=== PATIENT | female | born 1945 | race Caucasian/White ===

== ENCOUNTER 2018-01-24 17:02 | Inpatient (IN) | payer OTHER ==
[2018-01-24] MEDS ORDERED: INSULIN -REGULAR HUMAN 50 UNIT/0.5 ML ML ONE (17:24)
[2018-01-24] MEDS ORDERED: NA CHLORIDE 0.9% 1,000 ML ONE ×2 (17:24→21:14)
[2018-01-24 17:33] LABS: Absolute Lymphocytes (CBC) 0.4 K/uL (0.7-4.9); Absolute Monocytes 0.3 K/uL (0.1-1.3); Absolute Neutrophil 7.4 K/uL (1.8-8.0); Basophils % 0.2 % (0-1.3); Hematocrit 35.2 % (36.0-45.0); Lymphocytes % 4.5 % (15.3-44.8); MCH 28.1 pg (27.0-35.0); MCV 87.9 fL (80-100); MPV 7.9 fL (7.6-11.3); Monocytes % 3.4 % (3.3-12.3)
[2018-01-24 17:55] LABS: Potassium 6.1 mEq/L (3.6-5.0)
--- NOTE | 2018-01-24 18:20 | EDPHYS ---
Physician Documentation [facility] Name: Terra Lawson Age: 72 yrs Sex: Female : 1945 Arrival Date: 01/24/2018 Time: 17:05 Bed 14 Private MD: ED Physician Luan Mobley HPI: 01/24 17:20 This 72 yrs old Female presents to ER via EMS with complaints of High Blood kb Sugar. 17:20 The patient or guardian reports hyperglycemia. Onset: The symptoms/episode kb began/occurred today. Associated signs and symptoms: Pertinent positives: None. Current symptoms: In the emergency department the patient's symptoms are unchanged from the initial presentation. The patient has not experienced similar symptoms in the past. The patient has not recently seen a physician. Pt states she checked her blood sugar like she normally does and it read high so she came to get seen. States the pharmacy wouldn't give her the insulin that she normally takes until she is seen by a doctor so she has an appt tomorrow with Dr Zhang. . Historical: - Allergies: 17:06 No Known Allergies; aa5 - PMHx: 17:06 Diabetes - IDDM; Breast Cancer; aa5 17:14 Hypertension; aa5 - PSHx: 17:06 Knee surgery; Hysterectomy; aa5 - Immunization history:: Pneumococcal vaccine is up to date, Flu vaccine is up to date. - Social history:: Smoking status: Patient/guardian denies using tobacco. ROS: 17:19 Constitutional: Negative for fever, chills, and weight loss, Eyes: Negative for injury, kb pain, redness, and discharge, ENT: Negative for injury, pain, and discharge, Neck: Negative for injury, pain, and swelling, Cardiovascular: Negative for chest pain, palpitations, and edema, Respiratory: Negative for shortness of breath, cough, wheezing, and pleuritic chest pain, Abdomen/GI: Negative for abdominal pain, nausea, vomiting, diarrhea, and constipation, Back: Negative for injury and pain, : Negative for injury, bleeding, discharge, and swelling, MS/Extremity: Negative for injury and deformity, Skin: Negative for injury, rash, and discoloration, Neuro: Negative for headache, weakness, numbness, tingling, and seizure. Exam: 17:19 Constitutional: This is a well developed, well nourished patient who is awake, alert, kb and in no acute distress. Head/Face: Normocephalic, atraumatic. ENT: Nares patent. No nasal discharge, no septal abnormalities noted. Tympanic membranes are normal and external auditory canals are clear. Oropharynx with no redness, swelling, or masses, exudates, or evidence of obstruction, uvula midline. Mucous membranes moist. Neck: Trachea midline, no thyromegaly or masses palpated, and no cervical lymphadenopathy. Supple, full range of motion without nuchal rigidity, or vertebral point tenderness. No Meningismus. Chest/axilla: Normal chest wall appearance and motion. Nontender with no deformity. No lesions are appreciated. Cardiovascular: Regular rate and rhythm with a normal S1 and S2. No gallops, murmurs, or rubs. Normal PMI, no JVD. No pulse deficits. Respiratory: Lungs have equal breath sounds bilaterally, clear to auscultation and percussion. No rales, rhonchi or wheezes noted. No increased work of breathing, no retractions or nasal flaring. Abdomen/GI: Soft, non-tender, with normal bowel sounds. No distension or tympany. No guarding or rebound. No evidence of tenderness throughout. Back: No spinal tenderness. No costovertebral tenderness. Full range of motion. Skin: Warm, dry with normal turgor. Normal color with no rashes, no lesions, and no evidence of cellulitis. MS/ Extremity: Pulses equal, no cyanosis. Neurovascular intact. Full, normal range of motion. Neuro: Awake and alert, GCS 15, oriented to person, place, time, and situation. Cranial nerves II-XII grossly intact. Motor strength 5/5 in all extremities. Sensory grossly intact. Cerebellar exam normal. Normal gait. Vital Signs: 17:07 BP 136 / 68; Pulse 96; Resp 18 S; Temp 98.2(O); Pulse Ox 98% on R/A; Weight 63.5 kg aa5 (R); Height 5 ft. 5 in. (165.10 cm) (R); Pain 0/10; 18:00 BP 132 / 64; Pulse 88; Resp 18; Pulse Ox 96% on 3 lpm NC; hb 19:55 BP 115 / 54; Pulse 80; Resp 18; Pulse Ox 100% ; ea 20:55 BP 120 / 78; Pulse 82; Resp 18; Pulse Ox 99% ; ea 21:55 BP 120 / 67; Pulse 78; Resp 18; Temp 98.0; Pulse Ox 99% on R/A; ea 17:07 Body Mass Index 23.30 (63.50 kg, 165.10 cm) aa5 MDM: 17:06 Patient medically screened. kb 17:19 Data reviewed: vital signs, nurses notes. Data interpreted: Pulse oximetry: on room air kb is 98 %. Interpretation: normal. 18:10 Counseling: I had a detailed discussion with the patient and/or guardian regarding: the kb historical points, exam findings, and any diagnostic results supporting the discharge/admit diagnosis, lab results, radiology results, the need for further work-up and treatment in the hospital. 18:18 Physician consultation: Delvin Berkowitz DO was contacted at 18:19, regarding admission, kb to the ICU, patient's condition, and will see patient. 01/24 17:11 Order name: CBC with Diff; Complete Time: 18:56 kb 01/24 17:11 Order name: Basic Metabolic Panel; Complete Time: 17:57 kb 01/24 17:58 Order name: ABG; Complete Time: 18:34 kb 01/24 18:45 Order name: Urine Culture kb 01/24 18:45 Order name: Urine Microscopic Only kb 01/24 18:45 Order name: Blood Culture Adult (2) 01/24 18:54 Order name: Manual Differential; Complete Time: 18:56 EDMS 01/24 20:13 Order name: Acetone Level; Complete Time: 20:17 EDMS 01/24 20:16 Order name: Basic Metabolic Panel; Complete Time: 20:17 EDMS 01/24 21:28 Order name: Acetone Level; Complete Time: 21:29 EDMS 01/24 17:11 Order name: IV Start; Complete Time: 17:26 kb 01/24 18:19 Order name: EKG; Complete Time: 18:20 kb 01/24 18:19 Order name: EKG - Nurse/Tech; Complete Time: 18:58 kb Administered Medications: 17:26 Drug: NS 0.9% 1000 ml Route: IV; Rate: 1000 ml; Site: right forearm; aa5 18:30 Follow up: Response: No adverse reaction; IV Status: Completed infusion hb 17:27 Drug: Insulin Regular Human 10 units {Co-Signature: scarlett (Yesenia Sales RN).} Route: aa5 IVP; Site: right forearm; 19:00 Follow up: Response: No adverse reaction ea 18:13 CANCELLED (Duplicate Order): Albuterol 2.5 mg Inhalation once kb 18:20 Drug: Albuterol 5 mg Route: Inhalation; hb 19:19 Follow up: Response: No change in condition hb 18:22 Drug: Lasix 40 mg Route: IVP; Site: right antecubital; hb 19:19 Follow up: Response: No change in condition hb 18:30 Drug: NS 0.9% 1000 ml Route: IV; Rate: 125 ml/hr; Site: right antecubital; hb 20:03 Follow up: IV Status: Infusion continued upon admission ea 18:33 Drug: Kayexalate 45 grams Route: PO; hb 19:19 Follow up: Response: No adverse reaction hb 18:45 Drug: Insulin Drip - (Insulin Regular Human 100 units, NS 0.9% 100 ml) {Co-Signature: hb aa5 (Cortney Hayes RN).} Route: IV; Rate: calculated rate; Site: right antecubital; 22:03 Follow up: IV Status: Infusion continued upon admission ea 18:49 Drug: Calcium Gluconate 1 grams Route: IVPB; Infused Over: 60 mins; Site: right hb antecubital; 20:50 Follow up: Response: No adverse reaction; IV Status: Completed infusion ea Point of Care Testin:08 >500mg/dL aa5 Ranges: Critical Glucose Levels:Adult <50 mg/dl or >400 mg/dl <40 mg/dl or >180 mg/dl Disposition: 22:39 Co-signature as Attending Physician, Luan Mobley MD I agree with the assessment and kdr plan of care. Disposition: 01/24/18 18:19 Hospitalization ordered by Brandy Sol for Inpatient Admission. Preliminary diagnosis are Diabetes mellitus due to underlying condition with ketoacidosis, Hyperkalemia. - Bed requested for Intensive Care Unit. - Status is Inpatient Admission. ea - Condition is Stable. - Problem is new. - Symptoms are unchanged. UTI on Admission? No Signatures: Dispatcher [employer] Sharron Coats, MARY VIGIL-Anamika Guillen RN RN mw Luan Mobley MD MD [facility] Cortney Hayes RN RN aa5 Yesenia Sales, RN VONDA Samina Gallardo RN RN Yesenia Sales RN Cortney Hayes RN aa5 Corrections: (The following items were deleted from the chart) 18:13 18:03 Albuterol 2.5 mg Inhalation once ordered. kb kb 19:48 18:19 Hospitalization Ordered by Brandy Sol MD for Inpatient Admission. Preliminary mw diagnosis is Diabetes mellitus due to underlying condition with ketoacidosis; Hyperkalemia. Bed requested for Intensive Care Unit. Status is Inpatient Admission. Condition is Stable. Problem is new. Symptoms are unchanged. UTI on Admission? No. kb 22:54 19:48 01/24/2018 18:19 Hospitalization Ordered by Brandy Sol MD for Inpatient ea Admission. Preliminary diagnosis is Diabetes mellitus due to underlying condition with ketoacidosis; Hyperkalemia. Bed requested for Intensive Care Unit. Status is Inpatient Admission. Condition is Stable. Problem is new. Symptoms are unchanged. UTI on Admission? No. mw
--- NOTE | 2018-01-24 18:20 | ER ---
Nurse's Notes [facility] Name: Terra Lawson Age: 72 yrs Sex: Female : 1945 Arrival Date: 01/24/2018 Time: 17:05 Bed 14 Private MD: Diagnosis: Diabetes mellitus due to underlying condition with ketoacidosis;Hyperkalemia Presentation: 01/24 17:05 Presenting complaint: Patient states: "my blood sugar was reading high today and the aa5 pharmacy would not give me my insulin because they said I needed to see a doctor first". pt denies any symptoms. Denies N/V, denies pain. 17:05 Transition of care: patient was not received from another setting of care. Onset of aa5 symptoms was January 24, 2018. Initial Sepsis Screen: Does the patient meet any 2 criteria? No. Patient's initial sepsis screen is negative. Does the patient have a suspected source of infection? No. Patient's initial sepsis screen is negative. Care prior to arrival: FSBG >500. 17:05 Method Of Arrival: EMS: [facility] aa5 17:05 Acuity: APRIL 3 aa5 17:05 Note Pt reports last chemotherapy was 2-3 weeks ago. aa5 18:05 Acuity: APRIL 2 hb Historical: - Allergies: 17:06 No Known Allergies; aa5 - PMHx: 17:06 Diabetes - IDDM; Breast Cancer; aa5 17:14 Hypertension; aa5 - PSHx: 17:06 Knee surgery; Hysterectomy; aa5 - Immunization history:: Pneumococcal vaccine is up to date, Flu vaccine is up to date. - Social history:: Smoking status: Patient/guardian denies using tobacco. Screenin:27 Abuse screen: Denies threats or abuse. Denies injuries from another. Nutritional aa5 screening: No deficits noted. Tuberculosis screening: No symptoms or risk factors identified. Fall Risk Total Monterroso Fall Scale indicates Low Risk Score (25-44 pts). Fall prevention measures have been instituted. Side Rails Up X 2 Family Present and informed to notify staff if they need to leave bedside As available Patient and Family Educated on Fall Prevention Program and strategies. Assessment: 17:30 General: Appears in no apparent distress. ill, Behavior is calm, cooperative. Pain: hb Denies pain. Neuro: Level of Consciousness is awake, alert, obeys commands, Oriented to person, place, time, situation. Cardiovascular: Capillary refill < 3 seconds Patient's skin is warm and dry. Respiratory: Airway is patent Trachea midline Respiratory effort is even, unlabored, Respiratory pattern is regular, symmetrical, Breath sounds are clear bilaterally. GI: No signs and/or symptoms were reported involving the gastrointestinal system. : No signs and/or symptoms were reported regarding the genitourinary system. EENT: No signs and/or symptoms were reported regarding the EENT system. Derm: No signs and/or symptoms reported regarding the dermatologic system. Skin is intact, is healthy with good turgor, Skin is pink, warm \\T\\ dry. Musculoskeletal: No signs and/or symptoms reported regarding the musculoskeletal system. 18:30 Reassessment: Patient appears in no apparent distress at this time. No changes from hb previously documented assessment. Patient and/or family updated on plan of care and expected duration. Pain level reassessed. Patient is alert, oriented x 3, equal unlabored respirations, skin warm/dry/pink. 19:30 General: Appears in no apparent distress. Behavior is calm, cooperative. Pain: Denies ea pain. Neuro: Level of Consciousness is awake, alert, obeys commands, Oriented to person, place, time, situation. Cardiovascular: Patient's skin is warm and dry. Respiratory: Airway is patent Respiratory effort is even, unlabored, Respiratory pattern is regular, symmetrical, Breath sounds are clear bilaterally. GI: No signs and/or symptoms were reported involving the gastrointestinal system. : No signs and/or symptoms were reported regarding the genitourinary system. EENT: No signs and/or symptoms were reported regarding the EENT system. Derm: Skin is intact, Skin is pink, warm \\T\\ dry. Musculoskeletal: No signs and/or symptoms reported regarding the musculoskeletal system. 20:30 Reassessment: Patient and/or family updated on plan of care and expected duration. Pain ea level reassessed. Patient is alert, oriented x 3, equal unlabored respirations, skin warm/dry/pink. 21:55 Reassessment: Patient and/or family updated on plan of care and expected duration. Pain ea level reassessed. Patient is alert, oriented x 3, equal unlabored respirations, skin warm/dry/pink. Vital Signs: 17:07 BP 136 / 68; Pulse 96; Resp 18 S; Temp 98.2(O); Pulse Ox 98% on R/A; Weight 63.5 kg aa5 (R); Height 5 ft. 5 in. (165.10 cm) (R); Pain 0/10; 18:00 BP 132 / 64; Pulse 88; Resp 18; Pulse Ox 96% on 3 lpm NC; hb 19:55 BP 115 / 54; Pulse 80; Resp 18; Pulse Ox 100% ; ea 20:55 BP 120 / 78; Pulse 82; Resp 18; Pulse Ox 99% ; ea 21:55 BP 120 / 67; Pulse 78; Resp 18; Temp 98.0; Pulse Ox 99% on R/A; ea 17:07 Body Mass Index 23.30 (63.50 kg, 165.10 cm) aa5 ED Course: 17:05 Patient arrived in ED. aa5 17:05 Arm band placed on Patient placed in an exam room, on a stretcher. aa5 17:06 [facility] kb 17:06 Luan Mobley MD is Attending Physician. kb 17:12 Triage completed. aa5 17:27 Inserted saline lock: 24 gauge in right forearm, using aseptic technique. Blood aa5 collected. 17:30 Patient has correct armband on for positive identification. Placed in gown. Bed in low hb position. Call light in reach. Side rails up X 1. 18:19 Brandy Sol MD is Hospitalizing Provider. kb 18:19 Yesenia Sales, RN is Primary Nurse. hb 18:35 Inserted saline lock: 22 gauge in right antecubital area, using aseptic technique. jb1 18:58 Blood Culture Adult (2) Sent. hb 20:02 No provider procedures requiring assistance completed. Patient admitted, IV remains in ea place. Administered Medications: 17:26 Drug: NS 0.9% 1000 ml Route: IV; Rate: 1000 ml; Site: right forearm; aa5 18:30 Follow up: Response: No adverse reaction; IV Status: Completed infusion hb 17:27 Drug: Insulin Regular Human 10 units {Co-Signature: scarlett (Yesenia Sales RN).} Route: aa5 IVP; Site: right forearm; 19:00 Follow up: Response: No adverse reaction ea 18:13 CANCELLED (Duplicate Order): Albuterol 2.5 mg Inhalation once kb 18:20 Drug: Albuterol 5 mg Route: Inhalation; hb 19:19 Follow up: Response: No change in condition hb 18:22 Drug: Lasix 40 mg Route: IVP; Site: right antecubital; hb 19:19 Follow up: Response: No change in condition hb 18:30 Drug: NS 0.9% 1000 ml Route: IV; Rate: 125 ml/hr; Site: right antecubital; hb 20:03 Follow up: IV Status: Infusion continued upon admission ea 18:33 Drug: Kayexalate 45 grams Route: PO; hb 19:19 Follow up: Response: No adverse reaction hb 18:45 Drug: Insulin Drip - (Insulin Regular Human 100 units, NS 0.9% 100 ml) {Co-Signature: scarlett nance5 (Cortney Hayes RN).} Route: IV; Rate: calculated rate; Site: right antecubital; 22:03 Follow up: IV Status: Infusion continued upon admission ea 18:49 Drug: Calcium Gluconate 1 grams Route: IVPB; Infused Over: 60 mins; Site: right hb antecubital; 20:50 Follow up: Response: No adverse reaction; IV Status: Completed infusion ea Point of Care Testin:08 >500mg/dL aa5 Ranges: Outcome: 18:19 Decision to Hospitalize by Provider. kb 22:05 Instructed on the need for admit. ea 22:54 Admitted to ICU accompanied by nurse, via stretcher, room 7, on monitor, with chart, ea Report called to Receiving nurse 22:54 Condition: stable 22:54 Patient left the ED. ea Signatures: Jeevan Kauffman jb1 Sharron Barry, MARY VIGIL-Cortney Mejia RN RN aa5 Yesenia Sales RN RN Samina Gallardo RN RN ea Heather Baxter RN hb Audri Calderon RN aa5
[2018-01-24] MEDS ORDERED: SOD POLYSTYREN SUL 15 GM/60 ML UCUP ONE (18:24)
[2018-01-24] MEDS ORDERED: FUROSEMIDE 40 MG/4 ML VIAL ONE (18:24)
[2018-01-24] MEDS ORDERED: ALBUTEROL 2.5 MG/3 ML NEB SOL ONE (18:24)
[2018-01-24 18:29] LABS: Arterial Blood Carboxyhemoglob 1.8 % (0-1.5); Blood Gas Oxyhemoglobin 91.5 % (94-97); Blood O2 Saturation 94.2 % (92-98.5)
[2018-01-24] MEDS ORDERED: ONDANSETRON 4 MG/2 ML VIAL IV PRN (18:42)
[2018-01-24] MEDS ORDERED: NA CHLORIDE 0.9% 1,000 ML IV ONE (18:42)
[2018-01-24 18:53] LABS: Blood Morphology Comment NOT SEEN (NOT SEEN); Platelet Estimate ADEQ
[2018-01-24] MEDS ORDERED: ENOXAPARIN 40 MG/0.4 ML SQ SCH (19:00)
[2018-01-24] MEDS ORDERED: D5 0.45 NS 1,000 ML IV SCH (19:00)
[2018-01-24] MEDS ORDERED: INSULIN -REGULAR HUMAN 100 UNIT in NA CHLORIDE 0.9% 100 ML IV SCH (19:00)
[2018-01-24] MEDS ORDERED: NACHLORIDE 0.45% 1,000 ML IV SCH (19:00)
[2018-01-24] MEDS ORDERED: CALCIUM GLUCONATE 1gm/100 ML NS (4.65 mEq/100mL) IV ONE ×2 (19:00)
[2018-01-24 20:14] LABS: BUN Blood Urea Nitrogen 64 mg/dL (6-20); Bicarbonate 23 mEq/L (21-31); Potassium 4.5 mEq/L (3.6-5.0); Sodium Level 129 mEq/L (135-145)
[2018-01-24 20:15] LABS: Glucose Level 550 mg/dL (65-120)
[2018-01-24 23:53] LABS: BUN Blood Urea Nitrogen 63 mg/dL (6-20); Bicarbonate 25 mEq/L (21-31); Potassium 4.1 mEq/L (3.6-5.0); Sodium Level 133 mEq/L (135-145)
[2018-01-25 00:01] LABS: Glucose Level 461 mg/dL (65-120)
[2018-01-25] MEDS ORDERED: NA CHLORIDE 0.9% 1,000 ML IV ONE (01:08)
[2018-01-25 04:43] LABS: Absolute Lymphocytes (CBC) 0.7 K/uL (0.7-4.9); Absolute Monocytes 0.5 K/uL (0.1-1.3); Basophils % 0.1 % (0-1.3); Eosinophils % 0.3 % (0-4.4); Hematocrit 29.6 % (36.0-45.0); Lymphocytes % 8.3 % (15.3-44.8); MCH 27.4 pg (27.0-35.0); MCV 82.5 fL (80-100); MPV 7.8 fL (7.6-11.3); Monocytes % 6.1 % (3.3-12.3); RBC Red Blood Cell Count 3.59 M/uL (3.86-4.86)
[2018-01-25 05:00] VITALS: BMI 20.7
[2018-01-25 05:59] LABS: Magnesium 1.9 mg/dL (1.8-2.5); Phosphorus 3.5 mg/dL (2.5-4.3)
[2018-01-25 06:01] LABS: BUN Blood Urea Nitrogen 55 mg/dL (6-20); Bicarbonate 30 mEq/L (21-31); Glucose Level 167 mg/dL (65-120); Potassium 3.7 mEq/L (3.6-5.0); Sodium Level 136 mEq/L (135-145)
--- NOTE | 2018-01-25 06:05 | EKG ---
Test Date: 2018-01-24 Test Time: 18:55:04 Energy Consultant: LU MEASUREMENT RESULTS: Intervals: Rate: 98 [place]: 120 QRSD: 76 QT: 312 QTc: 398 [place]: P: 47 IL: 120 QRS: 10 T: 45 INTERPRETIVE STATEMENTS: Normal sinus rhythm Nonspecific T wave abnormality Abnormal ECG Compared to ECG 05/15/2015 07:58:49 T-wave abnormality now present Short [place] interval no longer present Electronically Signed On 01-25-18 06:04:17 CDT by Kumar Bowman
[2018-01-25 06:29] LABS: Potassium 3.5 mEq/L (3.6-5.0)
[2018-01-25] MEDS ORDERED: GLUCAGON 1 MG/VIAL IM PRN (06:44)
[2018-01-25] MEDS ORDERED: D50W 25 GM/50 ML SYRINGE IV PRN (06:44)
--- NOTE | 2018-01-25 06:56 | P.HP ---
Certification for Inpatient Patient admitted to: Inpatient With expected LOS: >2 Midnights Patient will require the following post-hospital care: None Practitioner: I am a practitioner with admitting privileges, knowledge of patient current condition, hospital course, and medical plan of care. Services: Services provided to patient in accordance with Admission requirements found in Title 42 Section 412.3 of the Code of Federal Regulations Patient History Date of Service: 01/24/18 Reason for admission: Hyperglycemia and metabolic acidosis History of Present Illness: Patient is a 72-year-old female who recently moved back in the town from [place]. She has history of diabetes but she was out of her insulin. Her blood sugars were reading high and her pharmacist recommended she go into the emergency room. In the emergency room patient was slightly acidotic and her blood sugars were greater than 800. Patient was admitted to the hospital on an insulin drip and given aggressive IV hydration as she has some renal insufficiency. Patient also has a breast mass. Is quite large and has been tender and she was told to have it followed up with when she was in [place]. However since she was coming back to live in the [facility] she did not get follow-up care. She is seen Dr. Edwards in the past and will go ahead and Consult a.m. at this time for further evaluation. Patient is not following up with an oncologist and she will also need outpatient oncology follow-up. Allergies No Known Drug Allergies Allergy (Verified 05/03/15 19:48) Unknown No Known Narinder Allergy (Uncoded 01/24/18 22:59) Unknown Home Medications: Glimepiride [Amaryl] 4 mg PO DAILY 05/16/15 Lisinopril [Prinivil*] 10 mg PO DAILY 05/16/15 Pravastatin Sodium [Pravachol] 40 mg PO BEDTIME 05/16/15 Promethazine Tab [Phenergan*] 12.5 mg PO Q6HP PRN 05/16/15 Sitagliptin Phos/Metformin HCl [Janumet 50-1,000 mg Tablet] 50 - 1,000 tab PO BID 05/16/15 Ascorbic Acid [Vitamin C] 2,000 mg PO DAILY 05/27/15 Calcium Carbonate/Vitamin D3 [Calcium 500 + D Tablet] 2,000 tab PO DAILY Cholecalciferol (Vitamin D3) [Vitamin D] 2,000 mg PO DAILY 05/27/15 Cinnamon Bark [Cinnamon] 2,000 mg PO DAILY 05/27/15 Collagenase [Santyl Ointment*] 1 dose TOP DAILY 05/27/15 Cranberry 900 mg PO DAILY 05/27/15 Ferrous Sulfate [Ferrous Sulfate*] 325 mg PO 30 MIN BEFORE HS 05/27/15 Fish Oil/Borage/Flax/Om3,6,9#1 [Triple [place] Complex 3-6-9] 400 mg PO DAILY 06/02 Hydrocortisone Cream [Hydrocortisone 1% Cream*] 1 dose TOP DAILY 05/27/15 Vitamin E 1,000 iu PO DAILY 05/27/15 Dexamethasone 4 mg PO BID 01/25/18 Omeprazole [Prilosec] 40 mg PO DAILY 01/25/18 - Past Medical/Surgical History Has patient received pneumonia vaccine in the past: Yes Diabetic: Yes -: Diabetes -: HTN -: Hyperlipidemia -: Bilateral Cataract Surgery -: L Knee arthroscopy -: Hysterectomy -: R foot ulcer - wound care - Family History Father History Unknown: Yes Medical History: Hypertension Mother History Unknown: Yes Medical History: Diabetes - Social History Smoking Status: Former smoker Alcohol use: Yes CD- Drugs: No Caffeine use: Yes Review of Systems 10-point ROS is otherwise unremarkable Physical Examination - Vital Signs Temperature: 98.5 F Blood Pressure: 119/57 Pulse: 76 Respirations: 13 Pulse Ox (%): 98 - Physical Exam General: Alert, In no apparent distress, Oriented x3 HEENT: Atraumatic, PERRLA, Mucous membr. moist/pink, EOMI, Sclerae nonicteric Neck: Supple, 2+ carotid pulse no bruit, No LAD, Without JVD or thyroid abnormality Respiratory: Clear to auscultation bilaterally, Normal air movement Cardiovascular: Regular rate/rhythm, Normal S1 S2, No murmurs Gastrointestinal: Normal bowel sounds, Soft and benign, Non-distended, No tenderness Musculoskeletal: No clubbing, No swelling, No tenderness Integumentary: No rashes Neurological: Normal gait, Normal speech, Normal strength at 5/5 x4 extr, Normal tone, Sensation intact, Cranial nerves 3-12 intact, Normal affect Lymphatics: No axilla or inguinal lymphadenopathy - Studies Laboratory Data (last 24 hrs) 01/24/18 17:20: Sodium 121 L, Potassium 6.1 H*, BUN 69 H, Creatinine 1.93 H, Glucose 850 H* 01/24/18 17:20: WBC 8.1, Hgb 11.3 L, Hct 35.2 L, Plt Count 285 Female Exam - Breasts Breasts: Masses/nodules (left breast-5x4cm mass with area of eschar) Assessment & Plan - Problems (Diagnosis) (1) DKA (diabetic ketoacidoses) Current Visit: Yes Status: Acute (2) Breast mass Current Visit: Yes Status: Acute (3) Altered mental status Current Visit: Yes Status: Acute - Plan 1. IVFs and insulin drip 2. Monitor labs 3. BS q hourly 4. Surgery consult for breast mass 5. Outpt oncology follow-up 6. GI/DVT prophylaxis Discharge Plan: Home Plan to discharge in: Greater than 2 days - Advance Directives Does patient have a Living Will: Yes Does patient have a Durable POA for Healthcare: No - Code Status/Comfort Care Code Status Assessed: Yes Code Status: Full Code Critical Care: No Time Spent Managing PTS Care (In Minutes): 50
[2018-01-25] MEDS ORDERED: INSULIN 70/30 100 UNITS/ML SQ SCH (07:30)
[2018-01-25] MEDS: INSULIN DETEMIR 100 UNIT/1 ML INSULIN SQ SCH (07:45)
[2018-01-25 08:00] LABS: Thyroid Stimulating Hormone 0.04 uIU/mL (0.34-5.60)
[2018-01-25] MEDS ORDERED: HYDROCODONE/APAP 7.5/325 MG TAB PO PRN (08:00)
[2018-01-25] MEDS ORDERED: NA CHLORIDE 0.9% 1,000 ML IV SCH (08:00)
[2018-01-25] MEDS ORDERED: TRAMADOL HCL 50 MG TAB PO PRN (08:00)
--- NOTE | 2018-01-25 08:09 | P.PN ---
Subjective Date of Service: 01/25/18 Primary Care Provider: Santosh; ([facility]) Chief Complaint: Hyperglycemia and metabolic acidosis Subjective: Improving (Patient feels well. No nausea, vomiting, abdominal pain or chest pain. Patient with history of diabetes mellitus, hypertension, hyperlipidemia, iron deficiency, chronic renal disease, and breast cancer with mets to the brain/liver) Physical Examination - Vital Signs Temperature: 98.5 F Blood Pressure: 102/53 Pulse: 78 Respirations: 10 Pulse Ox (%): 97 - Physical Exam General: Alert, In no apparent distress, Oriented x3, Cooperative HEENT: Atraumatic, Other (Patient bald) Neck: Supple Respiratory: Clear to auscultation bilaterally, Normal air movement Cardiovascular: Normal pulses, Regular rate/rhythm Gastrointestinal: Normal bowel sounds, Soft and benign, Non-distended, No masses , No rebound, No guarding Musculoskeletal: No erythema, No tenderness, No warmth Integumentary: Other (Breast mass to the left breast. Some ulceration noted breast mass is noted to the axilla area with lymphadenopathy.) Neurological: Normal speech, Normal strength at 5/5 x4 extr, Normal tone, Normal affect - Studies Laboratory Data (last 24 hrs) 01/24/18 17:20: Sodium 121 L, Potassium 6.1 H*, BUN 69 H, Creatinine 1.93 H, Glucose 850 H* 01/24/18 17:20: WBC 8.1, Hgb 11.3 L, Hct 35.2 L, Plt Count 285 Medications List Reviewed: Yes Assessment & Plan - Problems (Diagnosis) (1) Diabetes mellitus Current Visit: Yes Status: Acute Plan: Will check A1c. Patient likely has underlying diabetes mellitus type 2. Patient reports use of insulin in the past but medications also include oral. DKA has resolved. Will discontinue IV insulin. Will transition to Levemir. Will check A1c. Will monitor closely and adjust. Patient will start diet. If doing well will consider transfer to floor later today. Qualifiers: Diabetes mellitus type: type 2 Diabetes mellitus intermediate insulin use: with intermediate use Diabetes mellitus complication status: with ketoacidosis Diabetes mellitus complication detail: without coma Qualified Code(s): E11.10 - Type 2 diabetes mellitus with ketoacidosis without coma; Z79.4 - assisted ( current) use of insulin (2) Chronic renal disease Current Visit: Yes Status: Acute Plan: Patient likely with acute on chronic renal disease. Will consult nephrology. Will order abdominal ultrasound to evaluate. Patient given IV fluids. Qualifiers: Chronic kidney disease stage: stage 3 (moderate) Qualified Code(s): N18.3 - Chronic kidney disease, stage 3 (moderate) (3) Hypertension Current Visit: Yes Status: Chronic Plan: Patient with history of hypertension. Will hold blood pressure medication at this time due to normal blood pressures. Qualifiers: Hypertension type: essential hypertension Qualified Code(s): I10 - Essential (primary) hypertension (4) Hyperlipidemia Current Visit: Yes Status: Chronic Plan: Will continue with her medication. Qualifiers: Hyperlipidemia type: unspecified Qualified Code(s): E78.5 - Hyperlipidemia , unspecified (5) Breast cancer Current Visit: Yes Status: Chronic Plan: Patient with breast cancer to the left breast. She has seen oncology in [place]. Patient had chemotherapy recently. Patient also has metastasis to the brain and liver. She has recently moved to the area. She is in need to establish care with Oncology here to continue her care. The plan of treatment as reported by the patient was to continue with chemotherapy and possible radiation then surgery. Will have social scientist address advanced directives and obtain information from [facility]. Will consult Oncology here to establish Qualifiers: Breast location: upper outer quadrant of breast Estrogen receptor status: unspecified Patient sex: female Laterality: left Qualified Code(s): C50.412 - Malignant neoplasm of upper-outer quadrant of left female breast (6) Brain metastasis Current Visit: Yes Status: Chronic Plan: Continue as above (7) Liver metastasis Current Visit: Yes Status: Chronic Plan: Continue as above. (8) DKA (diabetic ketoacidoses) Current Visit: Yes Status: Acute Plan: This has resolved. Will discontinue IV insulin. Will transition to insulin subcu. Will check A1c. Qualifiers: Diabetes mellitus type: type 2 Diabetes mellitus complication detail: without coma Qualified Code(s): E11.10 - Type 2 diabetes mellitus with ketoacidosis without coma (9) Hyponatremia Current Visit: Yes Status: Acute Plan: Will continue with IV fluids. Rate has been adjusted. (10) Hyperkalemia Current Visit: Yes Status: Acute Plan: This has resolved. Will continue monitor closely. (11) Anemia Current Visit: Yes Status: Chronic Plan: This is likely of chronic disease, check iron and B12 studies. Qualifiers: Anemia type: other cause Other causes of anemia: chronic disease, other Qualified Code(s): D63.8 - Anemia in other chronic diseases classified elsewhere Discharge Plan: Home Plan to discharge in: 24 Hours Time Spent Managing Pts Care (In Minutes): 55
--- NOTE | 2018-01-25 08:35 | RAD REPORT ---
EXAM DESCRIPTION: RAD - Chest Single View - 01/25/2018 8:15 am CLINICAL HISTORY: Shortness of breath COMPARISON: Portable chest April 2015 TECHNIQUE: AP portable chest image was obtained 0803 hours . FINDINGS: Lung volumes are normal. There are innumerable variably sized pulmonary nodules throughout the lung hernandez from a few mm to 15 mm in diameter. Mediastinal and right hilar granulomatous type c alcifications are present, possibly calcifications within treated lymph nodes. There is widening of t he right side mediastinum at the aortic arch. There is no history of malignancy provided. However, th e patient has a right-sided Port-A-Cath in place. It is assumed the patient has a known malignancy. Trachea is midline. Heart and vasculature are normal. No measurable pleural effusion and no pneumotho rax. No gross bony abnormality seen. No acute aortic findings suspected. IMPRESSION: No failure or focal infiltrate seen. Innumerable pulmonary nodules presumed to be metastatic disease. The patient has a Port-A-Cath in daxa ce. Correlation is needed with history. Fullness of the mediastinum and right paratracheal region could be part of malignant process as well.
[2018-01-25] MEDS ORDERED: COLLAGENASE 30 GM OINTMENT TOP SCH (09:00)
[2018-01-25] MEDS ORDERED: HYDROCORTISONE 1 % CREAM 30GM TOP SCH (09:00)
[2018-01-25 09:11] LABS: Potassium 2.7 mEq/L (3.6-5.0)
--- NOTE | 2018-01-25 09:36 | RAD REPORT ---
EXAM DESCRIPTION: US - Abdomen Exam Complete - 01/25/2018 9:02 am CLINICAL HISTORY: History of chronic renal disease, history of metastatic breast carcinoma COMPARISON: CT imaging from April 2015. FINDINGS: Gallbladder size is normal. No gallstones, wall thickening or pericholecystic fluid. Commo n bile duct is normal with no common duct stone identified. Liver and spleen are normal in size. Live r is 15 cm in maximum dimension with the spleen 7 cm in maximum dimension. No liver capsular nodulari ty. Liver parenchyma is somewhat heterogeneous but a discrete liver mass is not identifiable. Provide d clinical history indicates breast carcinoma metastatic to the liver. No recent imaging of the liver available for correlation. Contrast CT or contrast MR imaging of the liver could be performed if the re is need to further document any possible liver disease. Preceding chest film showed numerous metas tatic lesions in the lung parenchyma. The pancreas is grossly normal but partially obscured. No hydronephrosis or suspicious mass in either kidney. Aorta is normal is size. No ascites or bulky lymphadenopathy. IMPRESSION: No gallbladder or biliary tree abnormality. The liver is heterogeneous but does not demonstrate focal lesions to match the provided history of br east carcinoma metastatic to the liver. If clinically warranted, contrast CT or contrast MR imaging o f the liver could be performed. Pancreas is too obscured by bowel to allow accurate assessment.
[2018-01-25] MEDS ORDERED: MAGNESIUM SULFATE 1 gm IVPB 1 GM/100 ML BAG IV ONE (10:07)
[2018-01-25] MEDS: POTASSIUM CL 40 MEQ in NA CHLORIDE 0.9% 500 ML IV SCH ×2 (10:52→16:00)
[2018-01-25] MEDS ORDERED: POTASSIUM CL SA 10 MEQ TAB PO ONE (11:17)
[2018-01-25 11:20] LABS: Ferritin 279.7 ng/ml (11.0-306.8)
[2018-01-25] MEDS: NA CHLORIDE 0.9% 1,000 ML IV SCH ×2 (12:00→20:04)
[2018-01-25 12:01] LABS: CKMB Creatine Kinase MB 1.2 ng/ml (0.3-4.0); Uric Acid 6.8 mg/dL (2.6-8.0)
[2018-01-25] MEDS: INSULIN -REGULAR HUMAN 50 UNIT/0.5 ML ML SQ SCH ×3 (13:01→20:55)
--- NOTE | 2018-01-25 16:27 | P.CNS ---
Date of Consult: 01/25/18 (ONCOLOGY) Pt seen and examined at 3.30 pm today. REASON FOR CONSULTATION: Metastatic breast cancer HPI: Patient is a 72 year old woman who is currently in the ICU for management of DKA. Apparently she moved from [place] recently. She has been getting treatment by Dr Greene, Oncologist in [place]. She does not give much history but states she had a few rounds of chemotherapy and radiation to the brain. She had needed hospitalization after every chemo cycle due to poor tolerance. She does not know what kind of breast cancer. She reports her last chemo was sometime in November after which she moved to [place]. She failed to establish care here with us. She reports limited activity at home lately. Ambulates slowly with fear of falls and mostly chair or bed bound due to fatigue. Other than chronic mild low back ache, she denies any pain. She has a huge breast mass with multiple skin lesions on the breast and axilla. REVIEW OF SYSTEMS: General (Constitutional): (+)fatigue; (-)fever; (-)night sweats; (+) wt loss of about 25 pounds since diagnosis; states that her appetite is good; (-)heat or cold intolerance. HEENT: (-) headaches; (-)blurred vision; (-) hearing loss; (-)nasal congestion; (-) bleeding; (-) swallowing difficulties. Cardiovascular: (-) chest pain or pressure; (+) SOB/ GRANADOS; (-) orthopnea or PND; (-) palpitation or syncope; (-) leg swelling. Pulmonary: (+) cough; (-) sputum. (+) SOB/GRANADOS; (-)wheezing; (-) hemoptysis. Gastrointestinal: (-) abdominal pain; (-) heartburn; (-)nausea; (-)vomiting; (-)hematemesis; (-) change in bowel habits; (-) rectal bleeding; (-) black tarry stools; (-) diarrhea; (-) constipation. Genitourinary: (-) pain or burning during micturition; (-) urgency; (-)frequency; (-)poor stream of urine. (-)hematuria. (-) polyuria or (-) nocturia. Neurologic: (-) CHANDLER; (-)double vision; (-) loss of vision; (-) difficulty with speech or memory; (-) weakness; (-)tingling; (-)numbness of extremities; feels unsteady sometimes. Musculoskeletal: Chronic low back pain. Denies any hip or any jt pains. PMH/PSH: Diabetes, HTN, Hyperlipidemia, Bilateral Cataract Surgery, L Knee arthroscopy,, Hysterectomy, R foot ulcer SH: Lives with daughter who takes care of her. Denies any alcohol, smoking or drugs. Former smoker. FH: Denies any malignancies that she knows of. NKDA EXAM: Vital Signs: reviewed and stable Gen: appears comfortable, lying in bed, AAOX3, not in distress, right sided chest port a cath in situ HEENT: atraumatic, normocephalic; mmm, mild pallor(+); No icterus. Neck: palpable LAD CVS: regular heart sounds Chest: B/l good air entry; no crackles. Abdomen: Soft, NTND, bowel sounds are present. No guarding or rigidity. Extremities: No pedal edema, no calf tenderness. Lymph: left axillary LAD+ ENT PHYSICIAN: AAOx3; converses well, moves all extremities. No focal neurological deficit. Breast: left breast - multiple skin lesions, breast mass with chest wall involvement; possible mass in the right breast as well- limited exam due to patients position. LABS: 8.2>9.8<269 MCV 82 iron panel 29 /224 /12%/ 279 Bun/cr 47/1.35 PROBLEMS: 1. Metastatic breast cancer: Discussed with Dr Greene, pt's prior oncologist in [place]. Pt has Triple negative breast cancer with mets to the brain, lungs and bone (right acetabulum) . She was receiving chemo with Adriamycin and Cytoxan. Post cycle 2, she was noted to have brain mets for which she received WBRT. Following WBRT, it appears she was non complaint and then moved to [place] but did not establish with the cancer center here. As per Dr Greene, her performance status was around ECOG 2 at that time. Her performance status, seems to have further deteriorated- ECOG 3. Metastatic triple negative breast cancer has a poor prognosis and only treatment is chemotherapy. Explained to her that her performance status should be ideal and appropriate to tolerate chemotherapy. Currently, she is in the ICU for management of DKA. She should follow up with us as outpatient and if her performance status improves, will discuss appropriate options of treatment, restaging, Rad/Onc referral etc. Also discussed the options of best supportive/ hospice care as well given her poor performance status, prior poor tolerance to chemotherapy and metastatic disease. She did not comment on her decision but will discuss with her daughter. Will re-address again when seen as outpatient. Cancer center contact information given to patient. Will follow up on her medical records from Dr Greene. animal care worker follow up to address childcare provider issues. 2. Anemia: Likely due to underlying malignancy though she might have an element of iron deficiency as well. May be started on iron supplementation. 3. DKA: Management as per ICU team. Discussed with Dr Berkowitz and ICU staff.
--- NOTE | 2018-01-25 17:04 | CON ---
Date of Consultation: 01/25/2018 Additional Consulting Physician: Delvin Berkowitz DO Reason For Consultation: Elevated BUN and creatinine, hypokalemia, acidosis. History Of Present Illness: This is a pleasant, unfortunate, 72-year-old female with significant pas t medical history of diabetes since 1979 complicated with neuropathy, no retinopathy, no nephropathy; hypertension; hyperlipidemia; breast cancer diagnosis back in late 2016, started on chemo and radiat ion, last chemo was in November 2017; the patient moved to [facility] area. The patient started feeling weak, nausea without any vomiting, polydipsia and polyuria. The patient did not have any supply of her in [facility]. For that reason, reported to the emergency room. In the emergency room, found to be DKA and elevated BUN and creatinine. For that reason, we have been consulted. The patient denied taking any nonsteroidal. No recent IV contrast, except the workup for her breast cancer, which she is not sure about if she received any IV contrast. No recent antibiotic. The patient was started on aggressive hydration. DKA has been resolved, but developed hypokalemia an d hypomagnesemia. Past Medical History: 1.Include diabetes since 1979 complicated with neuropathy, no retinopathy, no nephropathy. 2.Hypertension. 3.Hyperlipidemia. 4.Breast CA with metastasis to the lung and to the liver. Allergies: NO KNOWN DRUG ALLERGIES. Home Medications: Include: 1.Glimepiride. 2.Lisinopril 10. 3.Pravastatin. 4.Janumet. 5.Vitamin C. 6.Vitamin D3. 7.Cinnamon. 8.Cranberry pills. 9.Ferrous sulfate. 10.Fish oil. 11.Hydrocortisone cream. 12.Decadron. Past Surgical History: Include bilateral cataract surgery, left knee arthroscope, hysterectomy, and right foot ulcer. Family History: Positive for diabetes and hypertension. Social History: Ex-smoker. Active alcohol. Denies drug abuse. Review of Systems: Head and Neck: No red eye. No ear pain. GI: Has nausea. No vomiting. : No polyuria. No dysuria. No hematuria. DISTRICT SUPERVISOR: No vaginal discharge. Respiratory: No shortness of breath. Cardiovascular: No leg swelling. Endocrine: No polydipsia. Skin: No rash. Neuro: Has neuropathy. Musculoskeletal: Has pain in the breast area and the shoulder. Physical Examination: General: When I saw the patient, the patient lying in bed, comfortable, not on any distress. Vital Signs: Blood pressure 102/53, pulse of 78, afebrile. The patient had good urine output. The patient incontinent. Chest: Clear to auscultation. Heart: S1, S2. Regular. Abdomen: Soft, nontender. Extremities: No edema. Breast: Has ulcerated mass on the left breast extended to the left axillary area with ulceration on multiple satellite masses. Has lymphadenopathy bilateral on the axillary area. Could not appreciate any inguinal or submandibular. Laboratory Data: WBC 8.2, H and H 9.8/29.6, platelets 269. On admission, H and H 11.3/35.2. Sodium 135, potassium 2.7, bicarb 32, chloride 96, BUN 46, creatinine 1.3, GFR of 39. TSAT of 12, ferritin of 279, B12 of 1192, TSH of 0.04. Urine is still negative. Ketone was positive. ABG; pH 7.36, CO2 32, O2 74, base access -6, saturation 94. Current Medications: The patient on its include IV fluid, insulin drip has been discontinued, Loveno x 40 , calcium gluconate, atorvastatin, pantoprazole, normal saline at 75 per hour. Assessment And Plan: 1.Acute kidney injury secondary to prerenal superimposed with metformin use. Normal size kidney. Mostly secondary to prerenal. We will continue aggressive hydration and we will monitor the patient. 2.Hypokalemia and hypomagnesemia. We will supplement aggressively, especially with the presence of the DKA. 3.Contraction alkalosis. I am going to go ahead and increase normal saline to 100. Continue supple ment. 4.DKA. Acidosis has been resolved. 5.Diabetes as by primary. The patient is not going to be candidate for metformin as the patient dev eloped DKA. 6.Breast cancer and iron deficiency anemia. We will follow up with Oncology. Case discussed with Mykel Berkowitz, agreed on the plan. Discussed with the patient, verbalized understanding. DARIN Voice ID: [id number] Report ID: [id number]
[2018-01-25 19:22] LABS: Urine Appearance TURBID; Urine Bilirubin NEGATIVE (NEG); Urine Blood 3+ (NEG); Urine Color YELLOW; Urine Glucose 2+ (NEG); Urine Protein 1+ (NEG)
[2018-01-25 19:33] LABS: Urine Microscopic Reflex ORDER UMIC
[2018-01-25 19:35] LABS: Urine Bacteria 20-50 /HPF (<20)
[2018-01-25 19:36] LABS: Urine Amorphous Sediment 3+ /HPF (NONE SEEN); Urine Culture Reflex Order NOT NEEDED; Urine Mucus 2+ /HPF (NONE SEEN)
[2018-01-25] MEDS ORDERED: ATORVASTATIN 10 MG TAB PO SCH (21:00)
[2018-01-25] MEDS ORDERED: ENOXAPARIN 40 MG/0.4 ML SQ SCH (21:00)
[2018-01-25] MEDS ORDERED: BISACODYL 10 MG RECTAL SUPP PR ONE (21:05)
[2018-01-25 22:36] VITALS: O2SAT 99
[2018-01-26 05:24] LABS: Absolute Lymphocytes (CBC) 0.5 K/uL (0.7-4.9); Absolute Monocytes 0.2 K/uL (0.1-1.3); Absolute Neutrophil 4.7 K/uL (1.8-8.0); Basophils % 0.1 % (0-1.3); Eosinophils % 0.5 % (0-4.4); Hematocrit 24.1 % (36.0-45.0); Lymphocytes % 9.1 % (15.3-44.8); MCH 28.1 pg (27.0-35.0); MCV 83.2 fL (80-100); MPV 7.8 fL (7.6-11.3); Monocytes % 3.8 % (3.3-12.3); RBC Red Blood Cell Count 2.89 M/uL (3.86-4.86)
[2018-01-26] MEDS: NA CHLORIDE 0.9% 1,000 ML IV SCH (05:42)
[2018-01-26 06:01] LABS: Magnesium 1.9 mg/dL (1.8-2.5); Phosphorus 1.6 mg/dL (2.5-4.3); Potassium 4.1 mEq/L (3.6-5.0)
[2018-01-26] MEDS ORDERED: PANTOPRAZOLE 40MG TABLET PO SCH (06:30)
[2018-01-26] MEDS: INSULIN -REGULAR HUMAN 50 UNIT/0.5 ML ML SQ SCH ×2 (07:30→13:03)
[2018-01-26] MEDS: INSULIN DETEMIR 100 UNIT/1 ML INSULIN SQ SCH (10:21)
--- NOTE | 2018-01-26 10:24 | P.DS ---
Admission Date: 01/24/18 Discharge Date: 01/26/18 Primary Care Provider: Santosh; ([facility]); To [place] w Dr. Zhang Disposition: ROUTINE DISCHARGE Discharge Condition: GOOD Reason for Admission: Hyperglycemia and metabolic acidosis Consultations: Oncology-Dr. Castro Procedures: Lung chest x-ray: FINDINGS: Lung volumes are normal. There are innumerable variably sized pulmonary nodules throughout the lung hernandez from a few mm to 15 mm in diameter. Mediastinal and right hilar granulomatous type calcifications are present, possibly calcifications within treated lymph nodes. There is widening of the right side mediastinum at the aortic arch. There is no history of malignancy provided. However, the patient has a right-sided Port-A-Cath in place. It is assumed the patient has a known malignancy. Trachea is midline. Heart and vasculature are normal. No measurable pleural effusion and no pneumothorax. No gross bony abnormality seen. No acute aortic findings suspected. IMPRESSION: No failure or focal infiltrate seen. Innumerable pulmonary nodules presumed to be metastatic disease. The patient has a Port-A-Cath in place. Correlation is needed with history. Fullness of the mediastinum and right paratracheal region could be part of malignant process as well. Abdominal ultrasound: FINDINGS: Gallbladder size is normal. No gallstones, wall thickening or pericholecystic fluid. Common bile duct is normal with no common duct stone identified. Liver and spleen are normal in size. Liver is 15 cm in maximum dimension with the spleen 7 cm in maximum dimension. No liver capsular nodularity. Liver parenchyma is somewhat heterogeneous but a discrete liver mass is not identifiable. Provided clinical history indicates breast carcinoma metastatic to the liver. No recent imaging of the liver available for correlation. Contrast CT or contrast MR imaging of the liver could be performed if there is need to further document any possible liver disease. Preceding chest film showed numerous metastatic lesions in the lung parenchyma. The pancreas is grossly normal but partially obscured. No hydronephrosis or suspicious mass in either kidney. Aorta is normal is size. No ascites or bulky lymphadenopathy. IMPRESSION: No gallbladder or biliary tree abnormality. The liver is heterogeneous but does not demonstrate focal lesions to match the provided history of breast carcinoma metastatic to the liver. If clinically warranted, contrast CT or contrast MR imaging of the liver could be performed. Pancreas is too obscured by bowel to allow accurate assessment. - Problems (1) Diabetes mellitus Onset Date: 01/25/18 Current Visit: Yes Status: Acute Qualifiers: Diabetes mellitus type: type 2 Diabetes mellitus care home insulin use: with termite helper use Diabetes mellitus complication status: with ketoacidosis Diabetes mellitus complication detail: without coma Qualified Code(s): E11.10 - Type 2 diabetes mellitus with ketoacidosis without coma; Z79.4 - oil heaterman ( current) use of insulin (2) Chronic renal disease Onset Date: 01/25/18 Current Visit: Yes Status: Acute Qualifiers: Chronic kidney disease stage: stage 2 (mild) Qualified Code(s): N18.2 - Chronic kidney disease, stage 2 (mild) (3) Hyperlipidemia Onset Date: 01/25/18 Current Visit: Yes Status: Chronic Qualifiers: Hyperlipidemia type: unspecified Qualified Code(s): E78.5 - Hyperlipidemia , unspecified (4) Breast cancer Onset Date: 01/25/18 Current Visit: Yes Status: Chronic Qualifiers: Breast location: upper outer quadrant of breast Estrogen receptor status: unspecified Patient sex: female Laterality: left Qualified Code(s): C50.412 - Malignant neoplasm of upper-outer quadrant of left female breast (5) Brain metastasis Onset Date: 01/25/18 Current Visit: Yes Status: Chronic (6) DKA (diabetic ketoacidoses) Onset Date: 01/25/18 Current Visit: Yes Status: Acute Qualifiers: Diabetes mellitus type: type 2 Diabetes mellitus complication detail: without coma Qualified Code(s): E11.10 - Type 2 diabetes mellitus with ketoacidosis without coma (7) Hyponatremia Onset Date: 01/25/18 Current Visit: Yes Status: Acute (8) Hyperkalemia Onset Date: 01/25/18 Current Visit: Yes Status: Acute (9) Anemia Onset Date: 01/25/18 Current Visit: Yes Status: Chronic Qualifiers: Anemia type: other cause Other causes of anemia: chronic disease, other Qualified Code(s): D63.8 - Anemia in other chronic diseases classified elsewhere (10) Lung metastasis Current Visit: Yes Status: Chronic (11) Bone metastasis Current Visit: Yes Status: Chronic Brief History of Present Illness: 72-year-old female presented emergency room with elevated blood sugars. Patient recently moved from [place]. Patient with history of diabetes, hyperlipidemia, anemia and metastatic left breast cancer with metastasis to the brain, lung, and bone. She had noted that her blood sugars were elevated. She was in the process of establishing care in the area. She came to the ER for further evaluation. Patient found to be in DKA. Patient was admitted for treatment. Other electrolyte abnormalities included acute renal injury likely with underlying chronic renal disease noted. Hospital Course: During her stay the patient was treated for her DKA today. This resolved. Hemoglobin A1c was done. A1c was elevated. This was a send out lab due to the elevation. Patient remained stable on basal insulin. At discharge for her diabetes she will continue with Levemir 20 units subcu daily. I will recommend that she discontinue her previous oral medications-glimepiride and Janumet. Patient is to monitor blood sugars at least twice daily. Recommendation is to maintain blood sugars less 140 fasting and less than 200 after meals. Further adjustment can be done by her PCP. Patient is to establish care here locally. I will contact her PCP. Patient has metastatic breast cancer with metastasis to the brain, lung and bone. Patient has triple negative disease. Patient has a poor prognosis. Patient has required hospitalizations for prior chemotherapies. Patient likely a poor candidate for chemotherapy due to her worsening condition and multiple medical problems. Case discussed at length with oncology. Oncology is to reassess patient in 1 week. She is to go over treatment options with the patient including possible hospice. Prior to discharge. I will go over this in detail with the patient. I will provide medications-Zofran 4 mg 1 pill 3 times a day as needed for nausea and tramadol 50 mg 1 pill 3 times a day as needed for pain. Patient has anemia likely of chronic disease related to her metastatic disease and underlying iron deficiency. Patient will be started on iron 325 mg 1 pill twice daily. Recommendation is to recheck CBC in 1-2 weeks to monitor progress. Patient likely has chronic renal disease. Patient had acute on chronic disease upon admission. This has improved. Patient was evaluated by nephrology. Patient to refrain from any nonsteroidal anti-inflammatories will need to be renally dosed. Recommendation is for the patient to follow up with nephrology as an outpatient to further monitor. Recommendation to recheck lab-BMP in 1 week to monitor progress. Patient likely has GERD. I will discontinue Prilosec and change her medication. Patient will be started on Protonix 40 mg 1 pill once daily. Patient has hyperlipidemia. Patient will continue with her medication- pravastatin 40 mg 1 pill once daily. Patient previously taking blood pressure medication lisinopril. Blood pressure stable without medication at this time. Will recommend to discontinue lisinopril. She is to monitor blood pressures daily. If blood pressures remain above 140/90 she is to contact her PCP for further recommendation. Vital Signs/Physical Exam: Temp Pulse Resp BP Pulse Ox 99.3 F 86 18 108/53 L 97 01/26/18 04:00 01/26/18 04:00 01/26/18 04:00 01/26/18 04:00 01/26/18 04:00 General: Alert, In no apparent distress, Cooperative HEENT: Other (Patient with alopecia) Neck: Supple Respiratory: Clear to auscultation bilaterally, Normal air movement Cardiovascular: Normal pulses, Regular rate/rhythm Gastrointestinal: Normal bowel sounds, Soft and benign, Non-distended Musculoskeletal: No erythema, No tenderness, No warmth Integumentary: Other (Large breast mass with ulceration noted to the left side. Adenopathy also noted. Muscle wasting to the upper and lower extremities bilateral) Neurological: Normal speech, Normal strength at 5/5 x4 extr, Normal tone, Normal affect Laboratory Data at Discharge: WBC 5.5 K/uL (4.3-10.9) D 01/26/18 04:20 Hgb 8.1 g/dL (12.0-15.0) L 01/26/18 04:20 Hct 24.1 % (36.0-45.0) L D 01/26/18 04:20 Plt Count 183 K/uL (152-406) D 01/26/18 04:20 Sodium 138 mEq/L (135-145) 01/26/18 04:20 Potassium 4.1 mEq/L (3.6-5.0) 01/26/18 04:20 BUN 29 mg/dL (6-20) H 01/26/18 04:20 Creatinine 0.99 mg/dL (0.44-1.00) 01/26/18 04:20 Glucose 60 mg/dL (65-120) L 01/26/18 04:20 Uric Acid 6.8 mg/dL (2.6-8.0) 01/25/18 10:25 Phosphorus 1.6 mg/dL (2.5-4.3) L D 01/26/18 04:20 Magnesium 1.9 mg/dL (1.8-2.5) 01/26/18 04:20 Triglycerides 266 mg/dL (35-160) H 01/25/18 03:20 Cholesterol 165 mg/dL (<200) 01/25/18 03:20 HDL Cholesterol 37 mg/dL (29-89) 01/25/18 03:20 Cholesterol/HDL Ratio 4.46 01/25/18 03:20 Home Medications: Pravastatin Sodium [Pravachol] 40 mg PO BEDTIME 05/16/15 Ascorbic Acid [Vitamin C] 2,000 mg PO DAILY 05/27/15 Calcium Carbonate/Vitamin D3 [Calcium 500-Vit D3 400 Tablet] 2,000 tab PO DAILY 05/27/15 Cholecalciferol (Vitamin D3) [Vitamin D] 2,000 mg PO DAILY 05/27/15 Cinnamon Bark [Cinnamon] 2,000 mg PO DAILY 05/27/15 Cranberry 900 mg PO DAILY 05/27/15 Fish Oil/Borage/Flax/Om3,6,9#1 [Triple [place] Complex 3-6-9] 400 mg PO DAILY 06/02 Vitamin E 1,000 iu PO DAILY 05/27/15 Ferrous Sulfate [Ferrous Sulfate*] 325 mg PO BID #60 tab 01/26/18 Insulin Detemir [Levemir*] 20 units SQ DAILY WITH BREAKFAST #1 ml 01/26/18 Ondansetron HCl [Zofran] 4 mg PO TID PRN #15 tablet 01/26/18 Pantoprazole [Protonix Tab*] 40 mg PO DAILYAC #30 tab 01/26/18 traMADol HCL [Ultram*] 50 mg PO TID PRN #30 tab 01/26/18 New Medications: Ferrous Sulfate [Ferrous Sulfate*] 325 mg PO BID #60 tab Insulin Detemir [Levemir*] 20 units SQ DAILY WITH BREAKFAST #1 ml Ondansetron HCl [Zofran] 4 mg PO TID PRN #15 tablet PRN Reason: Nausea / Vomiting Pantoprazole [Protonix Tab*] 40 mg PO DAILYAC #30 tab traMADol HCL [Ultram*] 50 mg PO TID PRN #30 tab PRN Reason: Pain Mild Patient Discharge Instructions: 1. Patient will need a follow up with her PCP in 1 week to follow up this hospitalization. 2. Patient presented with elevated blood sugar. Patient found to have DKA. This was treated during her stay. Hemoglobin A1c severely elevated. DKA has resolved. At discharge for her diabetes she will continue with Levemir 20 units subcu daily. I will recommend that she discontinue her previous oral medications-glimepiride and Janumet. Patient is to monitor blood sugars at least twice daily. Recommendation is to maintain blood sugars less 140 fasting and less than 200 after meals. Further adjustment can be done by her PCP. Patient is to establish care here locally. I will contact her PCP. 3. Patient has metastatic breast cancer with metastasis to the brain, lung and bone. Patient has triple negative disease. Patient has a poor prognosis. Patient has required hospitalizations for prior chemotherapies. Patient likely a poor candidate for chemotherapy due to her worsening condition and multiple medical problems. Case discussed at length with oncology. Oncology is to reassess patient in 1 week. She is to go over treatment options with the patient including possible hospice. I will provide medications-Zofran 4 mg 1 pill 3 times a day as needed for nausea and tramadol 50 mg 1 pill 3 times a day as needed for pain. 4. Patient has anemia likely of chronic disease related to her metastatic disease and underlying iron deficiency. Patient will be started on iron 325 mg 1 pill twice daily. Recommendation is to recheck CBC in 1-2 weeks to monitor progress. 5. Patient likely has chronic renal disease. Patient had acute on chronic disease upon admission. This has improved. Patient was evaluated by nephrology. Patient to refrain from any nonsteroidal anti-inflammatories will need to be renally dosed. Recommendation is for the patient to follow up with nephrology as an outpatient to further monitor. Recommendation to recheck lab-BMP in 1 week to monitor progress. 6. Patient has GERD. I will discontinue Prilosec and change her medication. Patient will be started on Protonix 40 mg 1 pill once daily. 7. Patient has hyperlipidemia. Patient will continue with her medication-pravastatin 40 mg 1 pill once daily. 8. Patient previously taking blood pressure medication lisinopril. Blood pressure stable without medication at this time. Will recommend to discontinue lisinopril. She is to monitor blood pressures daily. If blood pressures remain above 140/90 she is to contact her PCP for further recommendation. Diet: ADA Activity: Fall precautions Followup: Nila Castro MD [ACTIVE - CAN ADMIT] - Nicole Zhang DO [ACTIVE - CAN ADMIT] - Time spent managing pt's care (in minutes): 55
[2018-01-26 11:48] VITALS: BP 122/57; TEMP 100.6
[2018-01-26] MEDS ORDERED: HOME MED 1 EA UNK (Pravastatin Sodium [Pravachol] 40 MG) PO SCH (21:00)
[2018-01-26] MEDS ORDERED: FERROUS SULFATE 325 MG TAB PO SCH (21:00)
--- NOTE | 2018-01-27 01:28 | PN ---
Date of Progress Note: 01/26/2018 Chief Complaint: Elevated BUN, creatinine, hypokalemia, acidosis. History Of Present Illness: The patient has multiple medical problems including history of diabetes mellitus complicated by neuropathy. There is no history of diabetic nephropathy or retinopathy. The patient has history of breast cancer diagnosed back in 2017 and underwent treatment with chemotherapy and radiation. The patient presented to the hospital because she ran out of her insulin supply and came to emergency room, and was found to have DKA and elevated BUN and creatinine. Treatment was started with insulin and IV fluids. The patient was found to have acute kidney injury, nonoliguric, associated with prerenal azotemia in setting of diabetic ketoacidosis with uncontrolled diabetes. The patient was found to have hypokalemia. Potassium was 2.7. Sodium 135, BUN was 46, creatinine 1.5. Urine ketones were positive. Renal function has improved and blood work today showed BUN of 29, creatinine 0.99. Electrolytes are normal. Sodium 138, potassium 4.1, chloride 110, CO2 27. The patient has nonoliguric urine output. She was found to have phosphorus 1.6, calcium 7.4, and magnesium 1.9. Renal ultrasound was done. There is no hydronephrosis. No mass. Liver was somewhat heterogeneous although no discrete liver mass was identifiable. Review of Systems: Denies fever, chills. Physical Examination: Lungs: Clear to auscultation bilaterally. Heart: S1, S2. Abdomen: Soft, benign. Extremities: No edema. Impression And Plan: 1. Prerenal azotemia due to uncontrolled diabetes. 2. Hypokalemia in setting of uncontrolled diabetes. Potassium replacement was ordered. 3. Monitor phosphorus level and adjust treatment accordingly with replacement. 4. Acute kidney injury on arrival to the hospital on January 24. The patient had BUN of 69, creatinine 1.93 as well as hyponatremia. Sodium 121, potassium 6.1, bicarbonate 19, and chloride 85. Subsequently, the patient received treatment with insulin, hyperglycemia was severe. Glucose level was 860 and sodium was 121. Potassium level has stabilized and improved to 4.5. Currently, the patient does not have hyperkalemia. Glucose level has improved. The patient was treated with insulin drip. The patient will follow up with Nephrology outpatient for acute kidney injury. Currently, renal function has improved significantly. The patient needs to have outpatient workup to check electrolytes and renal function. EB/MODL Voice ID: [id number] Report ID: [id number] KENDRA
== END 2018-01-26 14:41 | disposition home or self-care (01) | DRG 638 ==
LOC: ER 17:02 → ERHOLD 18:32 → 3RD-ICU 20:30 → 4TH 01-25 20:25
PROVIDERS: ADMIT Hospitalist; ATTEND Hospitalist
DX: E11.10 Type 2 diabetes mellitus with ketoacidosis without coma (principal); C78.7 Secondary malignant neoplasm of liver and intrahepatic bile duct; C79.31 Secondary malignant neoplasm of brain; C79.51 Secondary malignant neoplasm of bone; E87.1 Hypo-osmolality and hyponatremia; N17.9 Acute kidney failure, unspecified; Z79.4 Long term (current) use of insulin; I12.9 Hypertensive chronic kidney disease with stage 1 through stage 4 chronic kidney disease, or unspecified chronic kidney disease; E11.22 Type 2 diabetes mellitus with diabetic chronic kidney disease; N18.3 Chronic kidney disease, stage 3 (moderate); E78.5 Hyperlipidemia, unspecified; C50.412 Malignant neoplasm of upper-outer quadrant of left female breast; E87.5 Hyperkalemia; D50.9 Iron deficiency anemia, unspecified; N18.2 Chronic kidney disease, stage 2 (mild); K21.9 Gastro-esophageal reflux disease without esophagitis
CPT/HCPCS: 36415; 71045; 76700; 80048; 80061; 81003; 81015; 82009; 82310; 82550; 82553; 82570; 82607; 82728; 82805; 82962; 83540; 83605; 83735; 84100; 84132; 84156; 84439; 84443; 84466; 84550; 85025; 87040; 87077; 87086; 87088; 87186; 93005; 99285; J0610; J1650; J3475; J7030

== ENCOUNTER 2018-02-04 23:48 | Inpatient (IN) | payer OTHER ==
[2018-02-05 00:20] LABS: Absolute Lymphocytes (CBC) 0.6 K/uL (0.7-4.9); Absolute Monocytes 0.2 K/uL (0.1-1.3); Absolute Neutrophil 6.5 K/uL (1.8-8.0); Basophils % 0.7 % (0-1.3); Eosinophils % 0.4 % (0-4.4); Hematocrit 30.8 % (36.0-45.0); Lymphocytes % 8.1 % (15.3-44.8); MCH 27.8 pg (27.0-35.0); MCV 83.2 fL (80-100); MPV 7.6 fL (7.6-11.3); Monocytes % 2.3 % (3.3-12.3)
[2018-02-05 00:34] LABS: Arterial Blood Carboxyhemoglob 1.6 % (0-1.5); Blood Gas Oxyhemoglobin 89.4 % (94-97); Blood O2 Saturation 91.7 % (92-98.5)
[2018-02-05 00:47] LABS: Protime INR 1.05
[2018-02-05 01:11] LABS: Blood Morphology Comment NOT SEEN (NOT SEEN); Platelet Estimate ADEQ; Urine White Blood Cell Casts OK
[2018-02-05 01:39] LABS: Albumin 2.3 g/dL (3.2-5.5); Bilirubin Direct 0.1 mg/dL (0-0.2); Bilirubin Total 0.5 mg/dL (0.3-1.2); Magnesium 1.9 mg/dL (1.8-2.5); Protein, Total 6.8 g/dL (6.0-8.3)
[2018-02-05 01:42] LABS: CKMB Creatine Kinase MB 0.8 ng/ml (0.3-4.0)
--- NOTE | 2018-02-05 04:02 | EDPHYS ---
Physician Documentation [facility] Name: Terra Lawson Age: 72 yrs Sex: Female : 1945 Arrival Date: 02/04/2018 Time: 23:49 Bed 3 Private MD: ED Physician Damir Gregg HPI: 02/05 00:08 This 72 yrs old Female presents to ER via EMS with unknown complaint. pkl 00:08 The patient presents with decreased mental status. Onset: The symptoms/episode pkl began/occurred just prior to arrival. Possible causes: low blood sugar. Associated signs and symptoms: Pertinent positives: shortness of breath, cough. Historical: - Allergies: 02/04 23:57 No Known Allergies; ak1 - Home Meds: 23:57 amlodipine oral [Active]; Dexamethasone Oral [Active]; Ferrous Sulfate Oral [Active]; ak1 Glimepiride Oral [Active]; Levemir subcutaneous subcutaneous [Active]; Omeprazole Oral [Active]; Ondansetron Oral [Active]; pantoprazole oral oral [Active]; pravastatin oral oral [Active]; tramadol Oral [Active]; Promethazine Oral [Active]; - PMHx: 23:57 breast cancer; Diabetes - IDDM; Hypertension; ak1 - PSHx: 23:57 Hysterectomy; Knee surgery; ak1 - Immunization history:: Adult Immunizations unknown. - Social history:: Smoking status: Patient/guardian denies using tobacco. ROS: 02/05 00:08 Eyes: Negative for injury, pain, redness, and discharge, ENT: Negative for injury, pkl pain, and discharge, Neck: Negative for injury, pain, and swelling, Cardiovascular: Negative for chest pain, palpitations, and edema. Respiratory: Positive for cough, with yellow sputum, shortness of breath. Abdomen/GI: Negative for abdominal pain, nausea, vomiting, and diarrhea. Back: Negative for acute changes. : Negative for urinary symptoms. MS/extremity: Negative for acute changes. Skin: Negative for rash. Neuro: Positive for altered mental status. Exam: 00:08 Head/Face: Normocephalic, atraumatic. Eyes: Pupils equal round and reactive to light, pkl extra-ocular motions intact. Lids and lashes normal. Conjunctiva and sclera are non-icteric and not injected. Cornea within normal limits. Periorbital areas with no swelling, redness, or edema. ENT: Nares patent. No nasal discharge, no septal abnormalities noted. Tympanic membranes are normal and external auditory canals are clear. Oropharynx with no redness, swelling, or masses, exudates, or evidence of obstruction, uvula midline. Mucous membranes moist. Neck: Trachea midline, no thyromegaly or masses palpated, and no cervical lymphadenopathy. Supple, full range of motion without nuchal rigidity, or vertebral point tenderness. No Meningismus. Chest/axilla: Normal chest wall appearance and motion. Nontender with no deformity. No lesions are appreciated. Cardiovascular: Regular rate and rhythm with a normal S1 and S2. No gallops, murmurs, or rubs. Normal PMI, no JVD. No pulse deficits. 00:08 Respiratory: mild respiratory distress is noted, Respirations: labored breathing, that is mild, Breath sounds: rales, that are moderate, are scattered. 00:08 Abdomen/GI: Bowel sounds: normal, Palpation: abdomen is soft and non-tender, in all quadrants. 00:08 Back: Exam negative for acute changes. 00:08 : Exam negative for acute changes. 00:08 Musculoskeletal/extremity: Exam is negative for acute changes. 00:08 Skin: Exam negative for rash. 00:08 Neuro: Orientation: appropriate for stated age, Mentation: appropriate for stated age, Cranial nerves: grossly normal, Motor: is normal. Vital Signs: 02/04 23:50 BP 110 / 68; Pulse 95; Resp 20; Temp 97; Pulse Ox 92% on R/A; Weight 64.86 kg (R); ak1 Height 5 ft. 5 in. (165.10 cm) (R); Pain 0/10; 02/05 01:37 BP 116 / 55; Pulse 87; Resp 20; Temp 98; Pulse Ox 93% on 2 lpm NC; Pain 0/10; ak1 03:14 BP 124 / 75; Pulse 106; Resp 24; Temp 98.3; Pulse Ox 96% on 2 lpm NC; Pain 0/10; ak1 05:44 BP 103 / 52; Pulse 89; Resp 17; Temp 98.4; Pulse Ox 93% on R/A; Pain 0/10; ak1 02/04 23:50 Body Mass Index 23.80 (64.86 kg, 165.10 cm) ak1 MDM: 02/04 23:55 Patient medically screened. pk 02/05 03:58 Data reviewed: vital signs, nurses notes, lab test result(s), EKG, radiologic studies, pkl plain films. 02/05 00:03 Order name: Basic Metabolic Panel; Complete Time: 03:01 pk 02/05 00:03 Order name: BNP; Complete Time: 03:01 pk 02/05 00:03 Order name: CBC with Diff; Complete Time: 03:01 pk 02/05 00:03 Order name: Ckmb; Complete Time: 03:01 pk 02/05 00:03 Order name: CPK; Complete Time: 03:01 pk 02/05 00:03 Order name: LFT's; Complete Time: 03:01 pk 02/05 00:03 Order name: Magnesium; Complete Time: 03:01 pk 02/05 00:03 Order name: PT-INR; Complete Time: 03:01 pk 02/05 00:03 Order name: Ptt, Activated; Complete Time: 03:01 pk 02/05 00:03 Order name: Troponin (emerg Dept Use Only); Complete Time: 03:01 pk 02/05 00:03 Order name: Hemoglobin A1c pk 02/05 00:03 Order name: ABG; Complete Time: 03:01 pk 02/05 00:03 Order name: Blood Culture Adult (2) pk 02/05 00:04 Order name: Lactate; Complete Time: 03:01 [facility] 02/05 00:03 Order name: XRAY Chest (1 view) pk 02/05 00:03 Order name: EKG; Complete Time: 00:04 pk 02/05 00:03 Order name: Cardiac monitoring; Complete Time: 00:05 pk 02/05 00:03 Order name: EKG - Nurse/Tech; Complete Time: 01:08 pk 02/05 00:03 Order name: IV Saline Lock; Complete Time: 00:05 pk 02/05 00:03 Order name: Labs collected and sent; Complete Time: 00:05 pk 02/05 00:03 Order name: O2 Per Protocol; Complete Time: 00:05 pk 02/05 00:03 Order name: O2 Sat Monitoring; Complete Time: 00:05 [facility] 02/05 00:04 Order name: Procalcitonin; Complete Time: 03:01 [facility] 02/05 00:07 Order name: Accucheck: q hourly; Complete Time: 01:14 [facility] 02/05 01:12 Order name: CBC Smear Scan; Complete Time: 03:01 EDMS Administered Medications: 04:31 Drug: [id number] 50 ml Route: IVP; Site: right antecubital; ak1 05:45 Follow up: Response: No adverse reaction ak1 Point of Care Testing: Blood Glucose: 00:04 Blood Glucose: 63 mg/dL; ak1 01:12 Blood Glucose: 126 mg/dL; ak1 02:16 Blood Glucose: 108 mg/dL; ak1 03:14 Blood Glucose: 75 mg/dL; ak1 04:25 Blood Glucose: 65 mg/dL; ak1 05:49 Blood Glucose: 174 mg/dL; bs1 03:14 pt had some drinks from a regular soda after FSBG ak1 Ranges: Critical Glucose Levels:Adult <50 mg/dl or >400 mg/dl <40 mg/dl or >180 mg/dl Disposition: 02/05/18 04:01 Hospitalization ordered by Huma Carpio for Inpatient Admission. Preliminary diagnosis is Hypoglycemic episode. Dyspnea. Pneumonia. Hypoxia. - Bed requested for Telemetry/MedSurg (Inpatient). - Status is Inpatient Admission. ak1 - Condition is Stable. - Problem is new. - Symptoms have improved. UTI on Admission? No Signatures: Dispatcher [employer] [facility] Jenny Wills RN RN kl Lam, Pin, MD MD [facility] Daxa Anand RN RN ak1 Corrections: (The following items were deleted from the chart) 05:43 04:01 Hospitalization Ordered by Huma Carpio MD for Inpatient Admission. Preliminary carol diagnosis is Hypoglycemic episode. Dyspnea. Pneumonia. Hypoxia. Bed requested for Telemetry/MedSurg (Inpatient). Status is Inpatient Admission. Condition is Stable. Problem is new. Symptoms have improved. UTI on Admission? No. pkl 06:26 05:43 02/05/2018 04:01 Hospitalization Ordered by Huma Carpio MD for Inpatient ak1 Admission. Preliminary diagnosis is Hypoglycemic episode. Dyspnea. Pneumonia. Hypoxia. Bed requested for Telemetry/MedSurg (Inpatient). Status is Inpatient Admission. Condition is Stable. Problem is new. Symptoms have improved. UTI on Admission? No. kl
--- NOTE | 2018-02-05 04:02 | ER ---
Nurse's Notes [facility] Name: Terra Lawson Age: 72 yrs Sex: Female : 1945 Arrival Date: 02/04/2018 Time: 23:49 Bed 3 Private MD: Diagnosis: Hypoglycemic episode. Dyspnea. Pneumonia. Hypoxia Presentation: 02/04 23:52 Presenting complaint: EMS states: pt with AMS. FSBG 30. 6 mg glucagon given IM, FSBG ak1 54. pt A\T\OX4. Transition of care: patient was not received from another setting of care. Onset of symptoms was February 04, 2018. Initial Sepsis Screen: Does the patient meet any 2 criteria? No. Patient's initial sepsis screen is negative. Does the patient have a suspected source of infection? No. Patient's initial sepsis screen is negative. Care prior to arrival: None. 23:52 Method Of Arrival: EMS: [facility] ak1 23:52 Acuity: APRIL 3 ak1 Triage Assessment: 23:57 General: Appears in no apparent distress. Behavior is calm, cooperative. Pain: Denies ak1 pain. EENT: No signs and/or symptoms were reported regarding the EENT system. Neuro: Level of Consciousness is awake, alert, obeys commands, Oriented to person, place, Manager Pathology are equal bilaterally Speech is normal. Cardiovascular: No deficits noted. Respiratory: Reports cough that is non-productive, Airway is patent. GI: No signs and/or symptoms were reported involving the gastrointestinal system. : No signs and/or symptoms were reported regarding the genitourinary system. Derm: No signs and/or symptoms reported regarding the dermatologic system. Musculoskeletal: No signs and/or symptoms reported regarding the musculoskeletal system. Historical: - Allergies: 23:57 No Known Allergies; ak1 - Home Meds: 23:57 amlodipine oral [Active]; Dexamethasone Oral [Active]; Ferrous Sulfate Oral [Active]; ak1 Glimepiride Oral [Active]; Levemir subcutaneous subcutaneous [Active]; Omeprazole Oral [Active]; Ondansetron Oral [Active]; pantoprazole oral oral [Active]; pravastatin oral oral [Active]; tramadol Oral [Active]; Promethazine Oral [Active]; - PMHx: 23:57 breast cancer; Diabetes - IDDM; Hypertension; ak1 - PSHx: 23:57 Hysterectomy; Knee surgery; ak1 - Immunization history:: Adult Immunizations unknown. - Social history:: Smoking status: Patient/guardian denies using tobacco. Screenin:59 Abuse screen: Denies threats or abuse. Denies injuries from another. Nutritional ak1 screening: No deficits noted. Tuberculosis screening: No symptoms or risk factors identified. Fall Risk None identified. Assessment: 02/05 00:00 Reassessment: Patient appears in no apparent distress at this time. No changes from ak1 previously documented assessment. see triage assessment. 01:15 Reassessment: Patient appears in no apparent distress at this time. No changes from ak1 previously documented assessment. Patient is alert, oriented x 3, equal unlabored respirations, skin warm/dry/pink. 02:16 Reassessment: Patient appears in no apparent distress at this time. No changes from ak1 previously documented assessment. Patient and/or family updated on plan of care and expected duration. Pain level reassessed. Patient is alert, oriented x 3, equal unlabored respirations, skin warm/dry/pink. 03:16 Reassessment: Patient appears in no apparent distress at this time. No changes from ak1 previously documented assessment. Patient and/or family updated on plan of care and expected duration. Pain level reassessed. Patient is alert, oriented x 3, equal unlabored respirations, skin warm/dry/pink. 04:07 Reassessment: pt informed of need to be admitted. pt resting with eyes close, resp even ak1 and unlabored. 05:45 Reassessment: Patient appears in no apparent distress at this time. No changes from ak1 previously documented assessment. Patient and/or family updated on plan of care and expected duration. Pain level reassessed. Vital Signs: 02/04 23:50 BP 110 / 68; Pulse 95; Resp 20; Temp 97; Pulse Ox 92% on R/A; Weight 64.86 kg (R); ak1 Height 5 ft. 5 in. (165.10 cm) (R); Pain 0/10; 02/05 01:37 BP 116 / 55; Pulse 87; Resp 20; Temp 98; Pulse Ox 93% on 2 lpm NC; Pain 0/10; ak1 03:14 BP 124 / 75; Pulse 106; Resp 24; Temp 98.3; Pulse Ox 96% on 2 lpm NC; Pain 0/10; ak1 05:44 BP 103 / 52; Pulse 89; Resp 17; Temp 98.4; Pulse Ox 93% on R/A; Pain 0/10; ak1 02/04 23:50 Body Mass Index 23.80 (64.86 kg, 165.10 cm) ak1 ED Course: 02/04 23:49 Patient arrived in ED. ak1 23:53 Triage completed. ak1 23:55 Damir Gregg MD is Attending Physician. pkl 23:59 Arm band placed on Patient placed in an exam room, on a stretcher, on oxygen, on ak1 compliance monitor, on pulse oximetry, Patient notified of wait time. 23:59 Patient has correct armband on for positive identification. Placed in gown. Bed in low ak1 position. Call light in reach. Side rails up X2. teletypesetter monitor on. Pulse ox on. NIBP on. 02/05 00:00 Inserted saline lock: 22 gauge in right antecubital area, using aseptic technique. ak1 Blood collected. 00:03 Daxa Anand, RN is Primary Nurse. ak1 00:32 XRAY Chest (1 view) In Process Unspecified. EDMS 01:37 No provider procedures requiring assistance completed. ak1 03:59 Huma Carpio MD is Hospitalizing Provider. pkl 04:07 Patient admitted, IV remains in place. ak1 Administered Medications: 04:31 Drug: D50W 50 ml Route: IVP; Site: right antecubital; ak1 05:45 Follow up: Response: No adverse reaction ak1 Point of Care Testing: Blood Glucose: 00:04 Blood Glucose: 63 mg/dL; ak1 01:12 Blood Glucose: 126 mg/dL; ak1 02:16 Blood Glucose: 108 mg/dL; ak1 03:14 Blood Glucose: 75 mg/dL; ak1 04:25 Blood Glucose: 65 mg/dL; ak1 05:49 Blood Glucose: 174 mg/dL; bs1 03:14 pt had some drinks from a regular soda after FSBG ak1 Ranges: Outcome: 04:01 Decision to Hospitalize by Provider. pkl 04:07 Condition: stable ak1 04:07 Instructed on the need for admit. 06:13 Admitted to Tele accompanied by tech, via stretcher, room 220, with oxygen, with chart, ak1 Report called to Bola FERRARI 06:26 Patient left the ED. ak1 Signatures: Dispatcher [employer] EDMS Damir Gregg MD MD pkl Krenek, Amber RN RN ak1 Feli Maldonado RN RN bs1
[2018-02-05] MEDS ORDERED: D50W 25 GM/50 ML SYRINGE IV ONE (04:28)
--- NOTE | 2018-02-05 05:19 | P.HP ---
Certification for Inpatient With expected LOS: >2 Midnights Practitioner: I am a practitioner with admitting privileges, knowledge of patient current condition, hospital course, and medical plan of care. Services: Services provided to patient in accordance with Admission requirements found in Title 42 Section 412.3 of the Code of Federal Regulations Patient History Date of Service: 02/05/18 Reason for admission: altered mental status History of Present Illness: Ms Lawson is a72 years old woman with history of IDDM, breast cancer, HTN, who was found with decreased mental status at home. When EMS arrived checked her BS and was 30 mg/dl. The patient was treated with glucagon, and subsequently her BS was 54. She gradually start to improve her conscious. The patient was admitted here about 10 days ago due to DKA. At my encounter the patient was alert and oriented, she said that has had cough with yellowish secretions and SOB for a few days. No history of fever or chills. Lab work remarkable for normal WBC count, but elevated procalcitonin. Sodium is low, ABG PH 7.49, PO2 35.2, PO2 62.6 CXR bilateral infiltrate, similar to previous one 10 days ago. Allergies No Known Drug Allergies Allergy (Verified 05/03/15 19:48) Unknown No Known Narinder Allergy (Uncoded 01/24/18 22:59) Unknown Home Medications: Pravastatin Sodium [Pravachol] 40 mg PO BEDTIME 05/16/15 Ascorbic Acid [Vitamin C] 2,000 mg PO DAILY 05/27/15 Calcium Carbonate/Vitamin D3 [Calcium 500-Vit D3 400 Tablet] 2,000 tab PO DAILY 05/27/15 Cholecalciferol (Vitamin D3) [Vitamin D] 2,000 mg PO DAILY 05/27/15 Cinnamon Bark [Cinnamon] 2,000 mg PO DAILY 05/27/15 Cranberry 900 mg PO DAILY 05/27/15 Fish Oil/Borage/Flax/Om3,6,9#1 [Triple [place] Complex 3-6-9] 400 mg PO DAILY 06/02 Vitamin E 1,000 iu PO DAILY 05/27/15 Ferrous Sulfate [Ferrous Sulfate*] 325 mg PO BID #60 tab 01/26/18 Insulin Detemir [Levemir*] 20 units SQ DAILY WITH BREAKFAST #1 ml 01/26/18 Ondansetron HCl [Zofran] 4 mg PO TID PRN #15 tablet 01/26/18 Pantoprazole [Protonix Tab*] 40 mg PO DAILYAC #30 tab 01/26/18 traMADol HCL [Ultram*] 50 mg PO TID PRN #30 tab 01/26/18 - Past Medical/Surgical History Diabetic: Yes -: Diabetes -: HTN -: Hyperlipidemia -: Bilateral Cataract Surgery -: L Knee arthroscopy -: Hysterectomy -: R foot ulcer - wound care - Family History Father -: Hypertension Mother -: Diabetes - Social History Smoking Status: Former smoker Alcohol use: Yes CD- Drugs: No Caffeine use: Yes Review of Systems 10-point ROS is otherwise unremarkable Physical Examination - Physical Exam General: Alert, In no apparent distress HEENT: Atraumatic, PERRLA, Mucous membr. moist/pink, EOMI, Sclerae nonicteric Neck: Supple, 2+ carotid pulse no bruit, No LAD, Without JVD or thyroid abnormality Respiratory: Diminished, Expiratory wheezes, Rhonchi/gurgles (bilateral rhonchi) Cardiovascular: Regular rate/rhythm, Normal S1 S2 Gastrointestinal: Normal bowel sounds, No tenderness Musculoskeletal: No tenderness Integumentary: No rashes Neurological: Normal speech, Normal strength at 5/5 x4 extr, Normal tone, Normal affect Lymphatics: No axilla or inguinal lymphadenopathy - Studies Laboratory Data (last 24 hrs) 02/05/18 01:09: B-Natriuretic Peptide 30 02/05/18 01:09: Sodium 127 L, Potassium 4.0, BUN 27 H, Creatinine 1.30 H, Glucose 124 H, Magnesium 1.9, Total Bilirubin 0.5, AST 25, ALT 13, Alkaline Phosphatase 68 02/05/18 00:25: PT 12.4, INR 1.05, APTT 23.7 L 02/04/18 23:40: WBC 7.4 D, Hgb 10.3 L, Hct 30.8 L D, Plt Count 339 D Assessment and Plan - Problems (Diagnosis) (1) Acute encephalopathy Current Visit: Yes Status: Acute (2) Hypoglycemia Current Visit: Yes Status: Acute (3) Chronic renal disease Onset Date: 01/25/18 Current Visit: No Status: Acute Qualifiers: Chronic kidney disease stage: stage 2 (mild) Qualified Code(s): N18.2 - Chronic kidney disease, stage 2 (mild) (4) Diabetes mellitus Onset Date: 01/25/18 Current Visit: No Status: Acute Qualifiers: Diabetes mellitus type: type 2 Diabetes mellitus usp insulin use: with usp use Diabetes mellitus complication status: with ketoacidosis Diabetes mellitus complication detail: without coma Qualified Code(s): E11.10 - Type 2 diabetes mellitus with ketoacidosis without coma; Z79.4 - emt intermediate ( current) use of insulin (5) Hyponatremia Onset Date: 01/25/18 Current Visit: No Status: Acute (6) Brain metastasis Onset Date: 01/25/18 Current Visit: No Status: Chronic (7) Breast cancer Onset Date: 01/25/18 Current Visit: No Status: Chronic Qualifiers: Breast location: upper outer quadrant of breast Estrogen receptor status: unspecified Patient sex: female Laterality: left Qualified Code(s): C50.412 - Malignant neoplasm of upper-outer quadrant of left female breast - Plan The patient will be admitted to the hospital due to acute encephalopathy in context of hypoglycemia. She has had dyspnea associated with productive cough with yellowish secretions, normal WBC but elevated procalcitonin. Will order empiric IV abx for possible early pneumonia vs acute bronchitis. Will order D- Dimer due to abnormal ABG, combined metabolic and respiratory alkalosis with hypoxiemia, PE needs to be considered within differential diagnosis. Also will check BS Q1HR until more stable values. - Advance Directives Does patient have a Living Will: Yes Does patient have a Durable POA for Healthcare: No - Code Status/Comfort Care Code Status Assessed: Yes Code Status: Full Code
[2018-02-05] MEDS ORDERED: ONDANSETRON 4 MG/2 ML VIAL IV PRN (07:23)
[2018-02-05] MEDS ORDERED: ALBUTEROL 2.5 MG/3 ML NEB SOL NEB PRN (07:23)
[2018-02-05] MEDS ORDERED: IPRATROPIUM BROM 0.5MG/2.5ML NEB PRN (07:23)
[2018-02-05] MEDS ORDERED: ACETAMINOPHEN 500 MG TAB PO PRN (07:23)
--- NOTE | 2018-02-05 07:59 | EKG ---
Test Date: 2018-02-05 Test Time: 00:38:50 Childcare Provider: STEF MEASUREMENT RESULTS: Intervals: Rate: 98 NV: 114 QRSD: 72 QT: 328 QTc: 418 [place]: P: 43 NV: 114 QRS: 28 T: 60 INTERPRETIVE STATEMENTS: Normal sinus rhythm Low voltage QRS Nonspecific T wave abnormality Abnormal ECG Compared to ECG 01/24/2018 18:55:04 Low QRS voltage now present T-wave abnormality still present Electronically Signed On 02-05-18 07:58:23 CDT by Kumar Bowman
[2018-02-05 08:31] VITALS: BMI 20.9
[2018-02-05] MEDS ORDERED: ENOXAPARIN 60 MG/0.6 ML SQ SCH (09:00)
[2018-02-05] MEDS ORDERED: AZITHROMYCIN IV 500 MG in NA CHLORIDE 0.9% 250 ML IVPB SCH (09:00)
[2018-02-05] MEDS ORDERED: CEFTRIAXONE/SWI 1gm 1 GM/10 ML SYR IV SCH ×2 (09:00→21:00)
--- NOTE | 2018-02-05 09:06 | RAD REPORT ---
EXAM DESCRIPTION: RADChest Single View02/05/2018 12:32 am CLINICAL HISTORY: Breast cancer COMPARISON: January 25, 2018 FINDINGS: Many bilateral pulmonary nodules are without obvious change. Mediastinal lymphadenopathy i s unchanged. The heart is normal size. A central venous catheter remains in place
[2018-02-05] MEDS: NA CHLORIDE 0.9% 1,000 ML IV SCH ×3 (09:29→23:23)
[2018-02-05 10:16] LABS: Urine Appearance TURBID; Urine Bilirubin NEGATIVE (NEG); Urine Blood 1+ (NEG); Urine Color YELLOW; Urine Glucose NEGATIVE (NEG); Urine Protein 1+ (NEG); Urine Specific Gravity 1.015 (1.005-1.030); Urine pH 7.5 (5.0-7.0)
[2018-02-05 10:51] LABS: Urine Microscopic Reflex ORDER UMIC
[2018-02-05] MEDS ORDERED: ENOXAPARIN 100 MG/ML SYR SQ SCH (12:30)
--- NOTE | 2018-02-05 12:33 | P.CNS ---
Date of Consult: 02/05/18 Reason for Consult: Hypoxemia Chief Complaint: altered mental status History of Present Illness: Patient is 72 years of age. Apparently she passed out was coughing denies any shortness of breath. No prior history of cardiopulmonary disorders does not have a primary care physician patient is a diabetic was found to be hypoglycemic no significant history of smoking denies any chest pain fever chills Allergies No Known Drug Allergies Allergy (Verified 02/05/18 08:09) Unknown Home Medications: Ferrous Sulfate [Feosol] 325 mg PO BID 02/05/18 Insulin Detemir [Levemir] 20 units SQ DAILY 02/05/18 Pantoprazole Sodium [Protonix] 40 mg PO DAILY 02/05/18 traMADol HCL [Ultram] 50 mg PO TID PRN 02/05/18 - Past Medical/Surgical History Diabetic: Yes -: Diabetes -: HTN -: Hyperlipidemia -: Patient has metastatic breast cancer with an ulcerating mass -: Bilateral Cataract Surgery -: L Knee arthroscopy -: Hysterectomy -: R foot ulcer - wound care - Family History Father Medical History: Hypertension Mother Medical History: Diabetes - Social History Alcohol use: Yes CD- Drugs: No Caffeine use: Yes Review of Systems 10-point ROS is otherwise unremarkable General: Weakness Physical Examination Temp Pulse Resp BP Pulse Ox 97.5 F 90 90 H 112/57 L 100 02/05/18 08:00 02/05/18 08:00 02/05/18 08:00 02/05/18 08:00 02/05/18 08:00 General: Alert, Oriented x3 Neck: Supple Respiratory: Clear to auscultation bilaterally, Other (Patient has a left-sided ulcerating mass) Cardiovascular: No edema, Regular rate/rhythm Gastrointestinal: Normal bowel sounds, Soft and benign Laboratory Data (last 24 hrs) 02/05/18 01:09: B-Natriuretic Peptide 30 02/05/18 01:09: Sodium 127 L, Potassium 4.0, BUN 27 H, Creatinine 1.30 H, Glucose 124 H, Magnesium 1.9, Total Bilirubin 0.5, AST 25, ALT 13, Alkaline Phosphatase 68 02/05/18 00:25: PT 12.4, INR 1.05, APTT 23.7 L 02/04/18 23:40: WBC 7.4 D, Hgb 10.3 L, Hct 30.8 L D, Plt Count 339 D - Problems (1) Syncope Current Visit: Yes Status: Acute Plan: Patient is 72 years of age was coughing had a syncopal attack he is also hypoxic was short of breath patient is a diabetic she was also hypoglycemic chest x-ray shows some interstitial changes plan is to rule out pulmonary embolism start on Lovenox patient's kidney function is abnormal recheck kidney function tomorrow she will need a CT pulmonary angiogram no evidence of sepsis mild normocytic anemia patient has a chronic renal insufficiency no hydronephrosis She has a history of breast cancer with metastatic disease hence very high risk for pulmonary embolism Qualifiers: Encounter type: initial encounter
[2018-02-05 12:39] LABS: Urine Amorphous Sediment 1+ /HPF (NONE SEEN); Urine Bacteria LOADED /HPF (<20); Urine Culture Reflex Order REFLEXED
--- NOTE | 2018-02-05 15:23 | RAD REPORT ---
EXAM DESCRIPTION: NM - Vent Perfusion VQ Scan - 02/05/2018 3:00 pm CLINICAL HISTORY: Shortness of breath, hypoxia COMPARISON: Chest radiograph 02/05/2018 TECHNIQUE: The patient was administered approximately 20.5 MCi Xenon 133 gas with posterior projecti on inspiration, equilibrium, and washout views obtained. The patient was then administered approximat yoandy 7.3 MCi Tc-99m SC labeled RBCs followed by standard 8 view protocol. FINDINGS: There is homogeneous distribution of the Xenon with no ventilation defects identified. Mil d air-trapping seen. Multiple perfusion defects are seen which are mismatched. IMPRESSION: High probability of pulmonary thromboembolism. Findings were discussed with Dr. Morris 3:20 p.m. 02/05/2018 by telephone.
--- NOTE | 2018-02-05 15:24 | RAD REPORT ---
EXAM DESCRIPTION: VAS - Extrem Venous W Compress Marques - 02/05/2018 3:09 pm CLINICAL HISTORY: Bilateral leg edema and swelling. COMPARISON: None. TECHNIQUE: Real-time sonographic interrogation of the left and right lower extremity deep venous sys tems was performed. FINDINGS: Normal compressibility, flow augmentation, phasic flow and spontaneous flow is identified in both the left and right lower extremity deep venous systems. IMPRESSION: No sonographic evidence of left or right lower extremity deep venous thrombosis.
[2018-02-05 16:13] LABS: A1c Component 1.23 mg/dL; Hemoglobin A1c 13.1 % (4-6.0)
[2018-02-05] MEDS ORDERED: CEFTRIAXONE 1 GM/NS 50 ML 1 GM/50 ML BAG IV SCH (16:49)
[2018-02-05] MEDS ORDERED: GLUCAGON 1 MG/VIAL IM PRN (16:53)
[2018-02-05] MEDS ORDERED: D50W 25 GM/50 ML SYRINGE IV PRN (16:53)
--- NOTE | 2018-02-05 16:58 | P.PN ---
Subjective Date of Service: 02/05/18 Chief Complaint: altered mental status Subjective: Improving (Patient doing slightly better than.) Physical Examination - Vital Signs Temperature: 97.4 F Blood Pressure: 82/51 Pulse: 109 Respirations: 18 Pulse Ox (%): 96 - Physical Exam General: Alert, In no apparent distress, Oriented x3, Cooperative HEENT: Atraumatic Neck: Supple Respiratory: Clear to auscultation bilaterally, Normal air movement Cardiovascular: Normal pulses, Regular rate/rhythm Gastrointestinal: Normal bowel sounds, Soft and benign, Non-distended Musculoskeletal: No erythema, No tenderness, No warmth Integumentary: No erythema, No warmth, No cyanosis Neurological: Normal speech, Normal strength at 5/5 x4 extr, Normal tone - Studies Laboratory Data (last 24 hrs) 02/05/18 01:09: B-Natriuretic Peptide 30 02/05/18 01:09: Sodium 127 L, Potassium 4.0, BUN 27 H, Creatinine 1.30 H, Glucose 124 H, Magnesium 1.9, Total Bilirubin 0.5, AST 25, ALT 13, Alkaline Phosphatase 68 02/05/18 00:25: PT 12.4, INR 1.05, APTT 23.7 L 02/04/18 23:40: WBC 7.4 D, Hgb 10.3 L, Hct 30.8 L D, Plt Count 339 D Microbiology Data (last 24 hrs): 02/05/18 01:09 Blood - Blood Anaerobic Blood Culture - Final 02/05/18 00:25 Blood - Blood Anaerobic Blood Culture - Final Medications List Reviewed: Yes Assessment & Plan - Problems (Diagnosis) (1) Pulmonary embolism Current Visit: Yes Status: Acute Plan: V/Q scan positive for pulmonary embolism. Patient on Lovenox. Patient with history of breast cancer with metastasis to the brain and bone. Pulmonology has evaluated the patient. Patient will likely need Eliquis at discharge. Will maintain oxygen saturations above 90%. Will reassess tomorrow. Will discuss with her oncologist. Qualifiers: Chronicity: acute Acute cor pulmonale presence: without acute cor pulmonale (2) Chronic renal disease Onset Date: 01/25/18 Current Visit: Yes Status: Acute Plan: Will monitor closely. Patient with IV fluids. Qualifiers: Chronic kidney disease stage: stage 2 (mild) Qualified Code(s): N18.2 - Chronic kidney disease, stage 2 (mild) (3) Diabetes mellitus Onset Date: 01/25/18 Current Visit: Yes Status: Acute Plan: Will continue with sliding scale. 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 Will recheck in the morning. (5) Syncope Current Visit: Yes Status: Acute Plan: Likely related to pulmonary embolism. We need to discuss plan of care and advanced directives. Qualifiers: Encounter type: initial encounter (6) Brain metastasis Onset Date: 01/25/18 Current Visit: Yes Status: Chronic Plan: Continue as above (7) Breast cancer Onset Date: 01/25/18 Current Visit: Yes Status: Chronic Plan: Will discuss with Oncology about the plan of care. Qualifiers: Breast location: upper outer quadrant of breast Estrogen receptor status: unspecified Patient sex: female Laterality: left Qualified Code(s): C50.412 - Malignant neoplasm of upper-outer quadrant of left female breast (8) Bone metastasis Current Visit: No Status: Chronic Plan: Continue as above (9) Hyperlipidemia Onset Date: 01/25/18 Current Visit: No Status: Chronic Plan: Continue with her medication Qualifiers: Hyperlipidemia type: unspecified Qualified Code(s): E78.5 - Hyperlipidemia , unspecified (10) Lung metastasis Current Visit: No Status: Chronic Plan: Continue as above Discharge Plan: Home Plan to discharge in: 24 Hours Time Spent Managing Pts Care (In Minutes): 55
[2018-02-05] MEDS: INSULIN -REGULAR HUMAN 50 UNIT/0.5 ML ML SQ SCH (17:19)
[2018-02-05] MEDS: FERROUS SULFATE 325 MG TAB PO SCH (20:57)
[2018-02-06 06:07] LABS: Absolute Lymphocytes (CBC) 0.5 K/uL (0.7-4.9); Absolute Monocytes 0.2 K/uL (0.1-1.3); Absolute Neutrophil 4.3 K/uL (1.8-8.0); Basophils % 0.6 % (0-1.3); Eosinophils % 2.3 % (0-4.4); Hematocrit 24.1 % (36.0-45.0); Lymphocytes % 10.2 % (15.3-44.8); MCH 27.6 pg (27.0-35.0); MPV 6.9 fL (7.6-11.3); Monocytes % 4.7 % (3.3-12.3)
[2018-02-06] MEDS: PANTOPRAZOLE 40MG TABLET PO SCH (06:21)
[2018-02-06] MEDS: NA CHLORIDE 0.9% 1,000 ML IV SCH (06:27)
[2018-02-06 06:48] LABS: Potassium 3.9 mEq/L (3.6-5.0)
[2018-02-06 06:49] LABS: Magnesium 1.7 mg/dL (1.8-2.5)
[2018-02-06] MEDS ORDERED: MAGNESIUM SULFATE 1 gm IVPB 1 GM/100 ML BAG IV ONE (06:57)
[2018-02-06] MEDS: INSULIN -REGULAR HUMAN 50 UNIT/0.5 ML ML SQ SCH ×4 (07:30→22:15)
--- NOTE | 2018-02-06 08:16 | P.PN ---
Subjective Date of Service: 02/06/18 Chief Complaint: Pulmonary embolism Subjective: Improving (Patient is improving still short of breath) Review of Systems Unremarkable Physical Examination - Vital Signs Temperature: 98.6 F Blood Pressure: 158/65 Pulse: 97 Respirations: 18 Pulse Ox (%): 99 - Physical Exam General: Alert, Oriented x3 Respiratory: Clear to auscultation bilaterally Cardiovascular: No edema, Normal S1 S2 - Studies Microbiology Data (last 24 hrs): 02/05/18 01:09 Blood - Blood Anaerobic Blood Culture - Final 02/05/18 00:25 Blood - Blood Anaerobic Blood Culture - Final Medications List Reviewed: Yes Assessment & Plan - Problems (Diagnosis) (1) Syncope Current Visit: Yes Status: Resolved Plan: Patient is 72 years of age was coughing had a syncopal attack he is also hypoxic was short of breath patient is a diabetic she was also hypoglycemic chest x-ray shows some interstitial changes plan is to rule out pulmonary embolism start on Lovenox patient's kidney function is abnormal recheck kidney function tomorrow she will need a CT pulmonary angiogram no evidence of sepsis mild normocytic anemia patient has a chronic renal insufficiency no hydronephrosis She has a history of breast cancer with metastatic disease hence very high risk for pulmonary embolism Qualifiers: Encounter type: initial encounter (2) Pulmonary embolism Current Visit: Yes Status: Acute Plan: Patient is 72 years of age history of metastatic breast cancer fairly chemotherapy admitted with a syncopal attack she has a high probability V/Q scan the changing to Eliquis 10 mg twice a day for 7 days then 5 mg twice a day she is going to need indefinite treatment patient has not tolerated chemotherapy before is probably going to go to hospice care renal function has now improved significantly with IV fluids oral hydration should be encouraged tech daily room air pulse ox Qualifiers: Chronicity: acute Acute cor pulmonale presence: without acute cor pulmonale
--- NOTE | 2018-02-06 08:34 | RAD REPORT ---
EXAM DESCRIPTION: RAD - Chest Single View - 02/06/2018 6:46 am CLINICAL HISTORY: Shortness of breath. COMPARISON: 02/05/2018 FINDINGS: Portable technique limits examination quality. Numerous bilateral pulmonary nodules are noted, stable. Right-sided venous catheter tip in the SVC. T he heart is upper limit normal in size. Fullness in the mediastinum is unchanged. No displaced fractu res. IMPRESSION: Stable chest since 02/05/2018.
[2018-02-06] MEDS ORDERED: APIXABAN 5 MG TABLET PO SCH (09:00)
[2018-02-06] MEDS ORDERED: POTASSIUM CL SA 10 MEQ TAB PO ONE (09:00)
[2018-02-06] MEDS: FERROUS SULFATE 325 MG TAB PO SCH ×2 (09:34→20:51)
[2018-02-06] MEDS: APIXABAN 5 MG TABLET PO SCH ×2 (09:34→20:51)
--- NOTE | 2018-02-06 12:22 | ECHO ---
HEIGHT: 5 ft 5 in WEIGHT: 126 lb 0 oz DATE OF STUDY: 02/06/[address]: Brian Morris MD 2-DIMENSIONAL: YES M.MODE: YES DOPPLER: YES COLOR FLOW: YES TDS: NO PORTABLE: NO DEFINITY: NO BUBBLE STUDY: NO DIAGNOSIS: SYNCOPE, HYPOXEMIA CARDIAC HISTORY: CATHERIZATION: NO SURGERY: NO PROSTHETIC VALVE: NO PACEMAKER: NO MEASUREMENTS (cm) DIASTOLIC (NORMALS) SYSTOLIC (NORMALS) IVSd 0.9 (0.6-1.2) LA Diam (1.9-4.0) LVEF 56% LVIDd 3.2 (3.5-5.7) LVIDs 2.3 (2.0-3.5) %FS 28% LVPWd 0.9 (0.6-1.2) Ao Diam (2.0-3.7) 2 DIMENSIONAL ASSESSMENT: RIGHT ATRIUM: NORMAL LEFT ATRIUM: NORMAL RIGHT VENTRICLE: NORMAL LEFT VENTRICLE: NORMAL TRICUSPID VALVE: NORMAL MITRAL VALVE: NORMAL PULMONIC VALVE: NORMAL AORTIC VALVE: NORMAL PERICARDIAL EFFUSION: NONE AORTIC ROOT: NORMAL LEFT VENTRICULAR WALL MOTION: DOPPLER/COLOR FLOW: IMPAIRED LEFT VENTRICULAR RELAXATION. COMMENTS: NORMAL 2D ECHOCARDIOGRAM. IMPAIRED LEFT VENTRICULAR RELAXATION. SINUS TACHYCARDIA 100 BEATS PER MINUTE. TECHNOLOGIST: Guilherme BYERS
--- NOTE | 2018-02-06 13:07 | P.PN ---
Subjective Date of Service: 02/06/18 Chief Complaint: Pulmonary embolism Subjective: Doing well Physical Examination - Vital Signs Temperature: 99.0 F Blood Pressure: 128/62 Pulse: 87 Respirations: 18 Pulse Ox (%): 100 - Physical Exam General: Alert, In no apparent distress, Oriented x3, Cooperative HEENT: Atraumatic Neck: Supple Respiratory: Clear to auscultation bilaterally, Normal air movement Cardiovascular: Normal pulses, Regular rate/rhythm Gastrointestinal: Normal bowel sounds, Soft and benign, Non-distended Musculoskeletal: No erythema, No tenderness, No warmth Integumentary: No tenderness/swelling, No erythema, No warmth, No cyanosis Neurological: Normal speech, Normal strength at 5/5 x4 extr, Normal tone - Studies Microbiology Data (last 24 hrs): 02/05/18 01:09 Blood - Blood Anaerobic Blood Culture - Final 02/05/18 00:25 Blood - Blood Anaerobic Blood Culture - Final Medications List Reviewed: Yes Assessment & Plan - Problems (Diagnosis) (1) Pulmonary embolism Current Visit: Yes Status: Acute Plan: V/Q scan positive for pulmonary embolism. Case discussed with pulmonology. Patient will be transition to oral medication-Eliquis. I also discussed in detail about advanced directives with patient and son. Patient wishes to be DNR. Patient signed [id number] DNR. Patient agrees to hospice. This will be arranged. Anticipate discharge tomorrow. Will get physical therapy to evaluate. Will monitor hemoglobin. Qualifiers: Chronicity: acute Acute cor pulmonale presence: without acute cor pulmonale (2) Chronic renal disease Onset Date: 01/25/18 Current Visit: Yes Status: Acute Plan: Will monitor closely. Will Dc IV fluids. This has improved. Qualifiers: Chronic kidney disease stage: stage 2 (mild) Qualified Code(s): N18.2 - Chronic kidney disease, stage 2 (mild) (3) Diabetes mellitus Onset Date: 01/25/18 Current Visit: Yes Status: Acute Plan: Will continue with sliding scale. 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 (5) Syncope Current Visit: Yes Status: Resolved Plan: Likely related to pulmonary embolism. Will continue as above. Qualifiers: Encounter type: initial encounter (6) Brain metastasis Onset Date: 01/25/18 Current Visit: Yes Status: Chronic Plan: Continue as above (7) Breast cancer Onset Date: 01/25/18 Current Visit: Yes Status: Chronic Plan: Advanced directives address with patient. Patient wishes to be DNR. Patient agrees to hospice. Will arrange for hospice. Qualifiers: Breast location: upper outer quadrant of breast Estrogen receptor status: unspecified Patient sex: female Laterality: left Qualified Code(s): C50.412 - Malignant neoplasm of upper-outer quadrant of left female breast (8) Bone metastasis Current Visit: No Status: Chronic Plan: Continue as above (9) Hyperlipidemia Onset Date: 01/25/18 Current Visit: No Status: Chronic Plan: Continue with her medication Qualifiers: Hyperlipidemia type: unspecified Qualified Code(s): E78.5 - Hyperlipidemia , unspecified (10) Lung metastasis Current Visit: No Status: Chronic Plan: Continue as above Discharge Plan: Home Plan to discharge in: 24 Hours - Code Status/Comfort Care Code Status Assessed: Yes (Patient wishes to be DNR. Will verify) Time Spent Managing Pts Care (In Minutes): 55
[2018-02-06 14:15] LABS: Hematocrit 25.4 % (36.0-45.0)
[2018-02-06] MEDS ORDERED: BENZONATATE 100 MG CAP PO PRN (17:39)
[2018-02-06 22:04] VITALS: O2SAT 93
[2018-02-07] MEDS: PANTOPRAZOLE 40MG TABLET PO SCH (05:41)
[2018-02-07 05:45] LABS: Absolute Lymphocytes (CBC) 0.7 K/uL (0.7-4.9); Absolute Monocytes 0.3 K/uL (0.1-1.3); Absolute Neutrophil 3.5 K/uL (1.8-8.0); Basophils % 0.6 % (0-1.3); Eosinophils % 1.9 % (0-4.4); Hematocrit 23.5 % (36.0-45.0); Lymphocytes % 15.2 % (15.3-44.8); MCH 28.3 pg (27.0-35.0); Monocytes % 5.6 % (3.3-12.3); RBC Red Blood Cell Count 2.87 M/uL (3.86-4.86)
[2018-02-07 05:53] LABS: Potassium 4.3 mEq/L (3.6-5.0)
[2018-02-07 05:58] LABS: Magnesium 1.8 mg/dL (1.8-2.5)
[2018-02-07] MEDS: INSULIN -REGULAR HUMAN 50 UNIT/0.5 ML ML SQ SCH ×2 (07:30→12:31)
[2018-02-07] MEDS ORDERED: INSULIN DETEMIR 100 UNIT/1 ML INSULIN SQ SCH (09:00)
[2018-02-07] MEDS: CEFTRIAXONE/SWI 1gm 1 GM/10 ML SYR IV SCH ×2 (09:00→10:10)
[2018-02-07] MEDS: FERROUS SULFATE 325 MG TAB PO SCH (10:09)
[2018-02-07] MEDS: APIXABAN 5 MG TABLET PO SCH (10:09)
--- NOTE | 2018-02-07 11:18 | P.DS ---
Admission Date: 02/05/18 Discharge Date: 02/07/18 Primary Care Provider: Dr. Zhang; Oncology-Dr. Castro Disposition: HOSPICE-HOME Discharge Condition: FAIR Reason for Admission: Pulmonary embolism Consultations: Pulmonary-Dr. Morris Procedures: V/Q scan: High probability of pulmonary embolism - Problems (1) Pulmonary embolism Current Visit: Yes Status: Acute Qualifiers: Chronicity: acute Acute cor pulmonale presence: without acute cor pulmonale (2) Chronic renal disease Onset Date: 01/25/18 Current Visit: Yes Status: Acute Qualifiers: Chronic kidney disease stage: stage 2 (mild) Qualified Code(s): N18.2 - Chronic kidney disease, stage 2 (mild) (3) Diabetes mellitus Onset Date: 01/25/18 Current Visit: Yes Status: Acute Qualifiers: Diabetes mellitus type: type 2 Diabetes mellitus intermediate school teacher insulin use: with intermediate school teacher use Diabetes mellitus complication status: with hypoglycemia Diabetes mellitus complication detail: without coma Qualified Code(s): E11.649 - Type 2 diabetes mellitus with hypoglycemia without coma; Z79.4 - prison (current) use of insulin (4) Hyponatremia Onset Date: 01/25/18 Current Visit: Yes Status: Acute (5) Syncope Current Visit: Yes Status: Resolved Qualifiers: Encounter type: initial encounter (6) Brain metastasis Onset Date: 01/25/18 Current Visit: Yes Status: Chronic (7) Breast cancer Onset Date: 01/25/18 Current Visit: Yes Status: Chronic Qualifiers: Breast location: upper outer quadrant of breast Estrogen receptor status: unspecified Patient sex: female Laterality: left Qualified Code(s): C50.412 - Malignant neoplasm of upper-outer quadrant of left female breast (8) Bone metastasis Current Visit: No Status: Chronic (9) Hyperlipidemia Onset Date: 01/25/18 Current Visit: No Status: Chronic Qualifiers: Hyperlipidemia type: unspecified Qualified Code(s): E78.5 - Hyperlipidemia , unspecified (10) Lung metastasis Current Visit: No Status: Chronic (11) UTI (urinary tract infection) Current Visit: Yes Status: Acute Qualifiers: Urinary tract infection type: site unspecified Hematuria presence: without hematuria Qualified Code(s): N39.0 - Urinary tract infection, site not specified (12) Acute encephalopathy Onset Date: 02/05/18 Current Visit: Yes Status: Resolved (13) Hypoglycemia Onset Date: 02/05/18 Current Visit: Yes Status: Resolved (14) Anemia Onset Date: 01/25/18 Current Visit: No Status: Chronic Qualifiers: Anemia type: other cause Other causes of anemia: chronic disease, other Qualified Code(s): D63.8 - Anemia in other chronic diseases classified elsewhere (15) GERD (gastroesophageal reflux disease) Current Visit: Yes Status: Chronic Qualifiers: Esophagitis presence: esophagitis presence not specified Qualified Code(s) : K21.9 - Gastro-esophageal reflux disease without esophagitis Brief History of Present Illness: 72-year-old female with multiple medical problems including diabetes, 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 Patient found to have hypoglycemia. Patient also reported some shortness of breath. Patient was admitted for treatment. Hospital Course: During the course of her stay her hypoglycemia resolved. Patient has diabetes. Patient recently treated for DKA. Patient improved during the course of her stay. Patient also with underlying triple negative breast cancer with metastasis to the brain, lungs, and bone. Her shortness of breath was related to underlying pulmonary embolism. She was high risk for this due to her breast cancer. Pulmonology was consulted. Anti coagulation was started. Due to her risk factors and poor condition advanced directives and hospice was discussed in detail with the patient. This also had been discuss with her oncologist. Her condition has deteriorated. After discussion with patient with family, patient requests to be do not resuscitate. She has signed in [id number] DNR. Hospice will be arranged. At discharge hospice is to be continued. For her pulmonary embolism, the patient will continue with Eliquis 10 mg 1 pill twice daily for 5 days then it will be decreased to 5 mg 1 pill twice daily indefinitely. This can be further managed by hospice. Patient may follow up with pulmonology if she desires. For her hypoglycemia this has resolved. Patient with diabetes. At discharge will decrease her insulin therapy to Levemir 10 units daily. This may need to be further monitored and adjusted by hospice. Patient with a hemoglobin A1c of 13.1. They are to monitor for hypoglycemia. If blood sugars remain low insulin therapy may need to be discontinued. Patient was found to have a UTI. E coli was identified. At discharge she will continue with Bactrim DS 1 pill twice daily for 7 days. UTI prevention will be provided. Patient with history of metastatic lung cancer. Patient will continue with home oxygen to maintain sats above 90%. Patient with anemia likely of chronic disease. Patient may continue with iron supplementation twice daily. Patient also presented with acute on chronic renal disease. Patient with given IV fluids. This improved. This remained stable at discharge. As mentioned above patient will continue with hospice at home. Patient to continue with pain control and medication for agitation. This can be further addressed by hospice. Medications may need to be discontinued over time as she future its. This can be further addressed by hospice. Vital Signs/Physical Exam: Temp Pulse Resp BP Pulse Ox 99 F 106 H 18 120/63 99 02/07/18 08:00 02/07/18 08:00 02/07/18 08:00 02/07/18 08:00 02/07/18 08:00 General: Alert, Other (Patient with alopecia) HEENT: Atraumatic Neck: Supple Respiratory: Crackles/rales (Bilateral) Cardiovascular: Abnormal pulses (Mild sinus tachycardia) Gastrointestinal: Normal bowel sounds, Soft and benign, Non-distended, No masses , No rebound, No guarding Musculoskeletal: No erythema, No tenderness, No warmth Integumentary: No tenderness/swelling, No erythema, No warmth, No cyanosis Neurological: Normal speech, Normal strength at 5/5 x4 extr, Normal tone, Normal affect Laboratory Data at Discharge: WBC 4.6 K/uL (4.3-10.9) 02/07/18 05:08 Hgb 8.1 g/dL (12.0-15.0) L 02/07/18 05:08 Hct 23.5 % (36.0-45.0) L 02/07/18 05:08 Plt Count 214 K/uL (152-406) 02/07/18 05:08 PT 12.4 SECONDS (9.5-12.5) 02/05/18 00:25 INR 1.05 02/05/18 00:25 APTT 23.7 SECONDS (24.3-36.9) L 02/05/18 00:25 Sodium 130 mEq/L (135-145) L 02/07/18 05:08 Potassium 4.3 mEq/L (3.6-5.0) 02/07/18 05:08 BUN 14 mg/dL (6-20) 02/07/18 05:08 Creatinine 0.86 mg/dL (0.44-1.00) 02/07/18 05:08 Glucose 106 mg/dL (65-120) 02/07/18 05:08 Magnesium 1.8 mg/dL (1.8-2.5) 02/07/18 05:08 Total Bilirubin 0.5 mg/dL (0.3-1.2) 02/05/18 01:09 AST 25 IU/L (10-42) 02/05/18 01:09 ALT 13 IU/L (10-60) 02/05/18 01:09 Alkaline Phosphatase 68 IU/L (42-121) 02/05/18 01:09 B-Natriuretic Peptide 30 pg/ml (<=100) 02/05/18 01:09 Home Medications: Ferrous Sulfate [Feosol] 325 mg PO BID 02/05/18 Pantoprazole Sodium [Protonix] 40 mg PO DAILY 02/05/18 traMADol HCL [Ultram*] 50 mg PO TID PRN 02/05/18 Albuterol Neb [Proventil 0.083% Neb Soln] 2.5 mg NEB Q4HP PRN #90 amp 02/07/18 Apixaban [Eliquis] 10 mg PO SEECOM #60 tablet 02/07/18 Benzonatate [Tessalon Perle*] 100 mg PO TID PRN #30 cap 02/07/18 Insulin Detemir [Levemir] 10 units SQ DAILY #1 ml 02/07/18 New Medications: Albuterol Neb [Proventil 0.083% Neb Soln] 2.5 mg NEB Q4HP PRN #90 amp PRN Reason: Shortness Of Breath Apixaban [Eliquis] 10 mg PO SEECOM #60 tablet Benzonatate [Tessalon Perle*] 100 mg PO TID PRN #30 cap PRN Reason: Cough Insulin Detemir [Levemir] 10 units SQ DAILY #1 ml Patient Discharge Instructions: 1. Patient will need to follow up with her PCP in 1 week to follow up this hospitalization. 2. Patient presented with altered mental status secondary to hypoglycemia. This resolved. Patient has diabetes. At discharge insulin therapy will be adjusted. Patient will continue with Levemir 10 units subcu daily. Recommendation is to monitor blood sugars at least twice daily. Recommendation is to maintain blood sugars less 140 fasting and less than 200 after meals. Medications may need to be adjusted over time. Hypoglycemia education will be continued. Patient will be discharged with hospice. Hospice may need to discontinue medication over time. 3. Patient has negative breast cancer with metastasis to the brain, lungs, and bone. Patient found to have shortness of breath. Patient found to have pulmonary embolism. Anti coagulation started. Patient evaluated by pulmonology. For her pulmonary embolism, the patient will continue with Eliquis 10 mg 1 pill twice daily for 5. 7 days then it will be decreased to 5 mg 1 pill twice daily indefinitely. This can be further managed by hospice. Patient may follow up with pulmonology if she desires. Patient will be discharged with hospice. Patient has signed out of hospital DNR. Further adjustments in medication can be done by hospice. 4. Patient was found to have a UTI. E coli was identified. At discharge she will continue with Bactrim DS 1 pill twice daily for 7 days. UTI prevention will be provided. 5. Patient has anemia. Patient will continue with iron supplementation. This can be monitored as an outpatient. 6. Patient has acute on chronic renal disease. This has remained stable. This can be monitored as an outpatient. 7. Patient has GERD. Patient will continue with Protonix 40 mg 1 pill once daily. Diet: ADA Activity: Fall precautions Time spent managing pt's care (in minutes): 55
[2018-02-07 14:31] VITALS: BP 127/61; TEMP 99.7
== END 2018-02-07 14:31 | disposition hospice, home (50) | DRG 637 ==
LOC: ER 23:48 → ERHOLD 02-05 04:04 → 2ND 02-05 05:56
PROVIDERS: ADMIT Internal Medicine; ATTEND Internal Medicine
DX: E11.649 Type 2 diabetes mellitus with hypoglycemia without coma (principal); G93.40 Encephalopathy, unspecified; I26.99 Other pulmonary embolism without acute cor pulmonale; E87.1 Hypo-osmolality and hyponatremia; C78.00 Secondary malignant neoplasm of unspecified lung; C79.31 Secondary malignant neoplasm of brain; C79.51 Secondary malignant neoplasm of bone; N39.0 Urinary tract infection, site not specified; Z79.4 Long term (current) use of insulin; I12.9 Hypertensive chronic kidney disease with stage 1 through stage 4 chronic kidney disease, or unspecified chronic kidney disease; E11.22 Type 2 diabetes mellitus with diabetic chronic kidney disease; N18.2 Chronic kidney disease, stage 2 (mild); R55 Syncope and collapse; C50.412 Malignant neoplasm of upper-outer quadrant of left female breast; E78.5 Hyperlipidemia, unspecified; B96.20 Unspecified Escherichia coli [E. coli] as the cause of diseases classified elsewhere; D63.1 Anemia in chronic kidney disease; K21.9 Gastro-esophageal reflux disease without esophagitis; N17.9 Acute kidney failure, unspecified; Z88.2 Allergy status to sulfonamides
CPT/HCPCS: 36415; 71045; 78582; 80048; 80076; 81003; 81015; 82550; 82553; 82805; 82962; 83036; 83605; 83735; 83880; 84145; 84484; 85014; 85018; 85025; 85379; 85610; 85730; 87040; 87070; 87077; 87086; 87088; 87186; 87205; 93005; 93306; 93970; 96374; 99285; A9540; A9558; J0456; J0696; J1650; J3475; J7030